=== PATIENT | male | born 1970 | race American Indian/Alaskan Native ===

== ENCOUNTER 2021-01-07 01:13 | Inpatient (IN) | payer OTHER ==
[2021-01-07] MEDS ORDERED: SODIUM CHLORIDE 0.9% 1000 ML 1,000 ML IV ONE ×2 (01:14→03:38)
--- NOTE | 2021-01-07 01:18 | Emergency Department Report ---
HPI - General Time Seen by Provider: 01/07/21 01:14 - HPI HPI: This is a 50-year-old -[place] male presents to the emergency department via EMS for evaluation of altered mental status and possible overdose. Apparently this patient showed up at the house of his ex- and daughter a few hours ago. He has not recently been in their lives. Per EMS the patient has been known to drink alcohol and use some "powder." When he showed up at his ex- 's house apparently he was not feeling well. They laid him down to rest and he slept for about 2 hours but they noticed that he appeared to have some abnormal breathing and then they were unable to arouse him from sleep. EMS has given him 6 mg of Narcan in total. Initially the patient was a GCS of 3 but by the time he arrives to the emergency department he is starting to show a slight improvement as he will occasionally open his eyes or move his extremities. However he seems to go right back to sleep and is nonverbal and not following commands. He had an Accu-Chek in route of about 200. ED Review of Systems ROS: Stated complaint: OD Other details as noted in HPI Comment: Unobtainable due to pts medical conditions Physical Exam - Physical Exam Physical Exam: GENERAL: The patient is ill-appearing and mostly unresponsive. HENT: Normocephalic. Atraumatic. Patient has moist mucous membranes. EYES: Pupils are constricted at about 3 mm, and equal, reactive to light. NECK: Supple. Trachea is midline. CHEST/LUNGS: Clear to auscultation. There is no respiratory distress noted. HEART/CARDIOVASCULAR: Regular. There is no tachycardia. There is no murmur. ABDOMEN: Abdomen is soft, nontender. Patient has normal bowel sounds. There is no abdominal distention. SKIN: Skin is warm and dry. NEURO: Patient is mostly unresponsive. GCS of 10. He will open his eyes to tac tile stimuli. Nonverbal. Seen moving his extremities. Withdraws from pain. MUSCULOSKELETAL: There is no obvious deformity. ED Course - Consultations Consultation #1: 01/07/21 05:12 I spoke to the fine chemicals operator on-call, Dr. Solitario, who agrees with the plan for aspirin and heparin. They will see the patient as a consult. - ABG Interpretation Ph: [phone] PCO2: 50 PO2: 72 Bicarbonate: 20 Interpretation: respiratory acidosis, metabolic acidosis, other (Hypoxemia) ED Medical Decision Making - Lab Data Result diagrams: 01/07/21 01:52 01/07/21 01:52 Lab Results 01/07/21 01/07/21 01/07/21 Range/Units 01:24 01:24 01:52 WBC 24.6 H (4.5-11.0) K/mm3 RBC 4.15 (3.65-5.03) M/mm3 Hgb 13.7 (11.8-15.2) gm/dl Hct 41.5 (35.5-45.6) % MCV 100 H (84-94) fl MCH 33 H (28-32) pg MCHC 33 (32-34) % RDW 12.8 L (13.2-15.2) % Plt Count 222 (140-440) K/mm3 Seg Neutrophils % Continuous Process Tanner Rotary Drum PT (12.2-14.9) Sec. INR (0.87-1.13) APTT (24.2-36.6) Sec. ABG pH (7.320-7.450) POC ABG pCO2 (32.0-48.0) mmHg POC ABG pO2 (83-108) mmHg POC ABG HCO3 ABG O2 Saturation (0-100) POC ABG Base Excess ABG Hemoglobin (12.0-17.5) ABG Oxyhemoglobin (94-98) ABG Methemoglobin (0.0-1.5) ABG Sodium (136.0-145.0) mmol/L ABG Potassium (3.40-4.50) mmol/L ABG Chloride (98-107) mmol/L ABG Glucose (65-95) mg/dL Carboxyhemoglobin (0.5-1.5) FiO2 % Sodium (137-145) mmol/L Potassium (3.6-5.0) mmol/L Chloride (98-107) mmol/L Carbon Dioxide (22-30) mmol/L Anion Gap mmol/L BUN (9-20) mg/dL Creatinine (0.8-1.3) mg/dL Estimated GFR ml/min BUN/Creatinine Ratio % Glucose (75-100) mg/dL Calcium (8.4-10.2) mg/dL Total Bilirubin (0.1-1.2) mg/dL Direct Bilirubin (0-0.2) mg/dL Indirect Bilirubin mg/dL AST (5-40) units/L ALT (7-56) units/L Alkaline Phosphatase (35-129) units/L Ammonia (25-60) umol/L Total Creatine Kinase (55-170) units/L Troponin T (0.00-0.029) ng/mL Total Protein (6.3-8.2) g/dL Albumin (3.9-5) g/dL Albumin/Globulin Ratio % Triglycerides (2-149) mg/dL Cholesterol (50-199) mg/dL LDL Cholesterol Direct (50-130) mg/dL HDL Cholesterol (40-59) mg/dL Cholesterol/HDL Ratio % TSH (0.270-4.200) mlU/mL Arterial Blood Glucose (65-95) mg/dL Arterial Blood Ionized Calcium (4.6-5.3) mg/dL Urine Color Yellow (Yellow) Urine Turbidity Slightly-cloudy (Clear) Urine pH 6.0 (5.0-7.0) Ur Specific [place] 1.009 (1.003-1.030) Urine Protein 100 mg/dl (Negative) mg/dL Urine Glucose (UA) 50 (Negative) mg/dL Urine Ketones Neg (Negative) mg/dL Urine Blood Sm (Negative) Urine Nitrite Neg (Negative) Urine Bilirubin Neg (Negative) Urine Urobilinogen < 2.0 (<2.0) mg/dL Ur Leukocyte Esterase Neg (Negative) Urine WBC (Auto) 6.0 (0.0-6.0) /HPF Urine RBC (Auto) 1.0 (0.0-6.0) /HPF U Epithel Cells (Auto) 1.0 (0-13.0) /HPF Urine Bacteria (Auto) 1+ (Negative) /HPF Hyaline Casts 4 /LPF Urine Mucus Few /HPF Salicylates (2.8-20.0) mg/dL Urine Opiates Screen Negative Urine Methadone Screen Negative Acetaminophen (10.0-30.0) ug/mL Ur Barbiturates Screen Negative Ur Phencyclidine Scrn Negative Ur Amphetamines Screen Negative U Benzodiazepines Scrn Negative Urine Cocaine Screen Positive U Marijuana (THC) Screen Negative Drugs of Abuse Note Disclamer Plasma/Serum Alcohol (0-0.07) % 01/07/21 01/07/21 01/07/21 Range/Units 01:52 01:52 01:52 WBC (4.5-11.0) K/mm3 RBC (3.65-5.03) M/mm3 Hgb (11.8-15.2) gm/dl Hct (35.5-45.6) % MCV (84-94) fl MCH (28-32) pg MCHC (32-34) % RDW (13.2-15.2) % Plt Count (140-440) K/mm3 Seg Neutrophils % PT (12.2-14.9) Sec. INR (0.87-1.13) APTT (24.2-36.6) Sec. ABG pH (7.320-7.450) POC ABG pCO2 (32.0-48.0) mmHg POC ABG pO2 (83-108) mmHg POC ABG HCO3 ABG O2 Saturation (0-100) POC ABG Base Excess ABG Hemoglobin (12.0-17.5) ABG Oxyhemoglobin (94-98) ABG Methemoglobin (0.0-1.5) ABG Sodium (136.0-145.0) mmol/L ABG Potassium (3.40-4.50) mmol/L ABG Chloride (98-107) mmol/L ABG Glucose (65-95) mg/dL Carboxyhemoglobin (0.5-1.5) FiO2 % Sodium 139 (137-145) mmol/L Potassium 4.5 (3.6-5.0) mmol/L Chloride 100.3 (98-107) mmol/L Carbon Dioxide 20 L (22-30) mmol/L Anion Gap 23 mmol/L BUN 12 (9-20) mg/dL Creatinine 1.7 H (0.8-1.3) mg/dL Estimated GFR 43 ml/min BUN/Creatinine Ratio 7 % Glucose 114 H (75-100) mg/dL Calcium 8.5 (8.4-10.2) mg/dL Total Bilirubin < 0.20 < 0.20 (0.1-1.2) mg/dL Direct Bilirubin < 0.2 (0-0.2) mg/dL Indirect Bilirubin 0.0 mg/dL AST 297 H 296 H (5-40) units/L ALT 320 H 319 H (7-56) units/L Alkaline Phosphatase 79 79 (35-129) units/L Ammonia (25-60) umol/L Total Creatine Kinase 416 H (55-170) units/L Troponin T 0.112 H* (0.00-0.029) ng/mL Total Protein 7.1 7.2 (6.3-8.2) g/dL Albumin 4.1 4.1 (3.9-5) g/dL Albumin/Globulin Ratio 1.4 1.3 % Triglycerides 165 H (2-149) mg/dL Cholesterol 170 (50-199) mg/dL LDL Cholesterol Direct 94 (50-130) mg/dL HDL Cholesterol 64 H (40-59) mg/dL Cholesterol/HDL Ratio 2.65 % TSH (0.270-4.200) mlU/mL Arterial Blood Glucose (65-95) mg/dL Arterial Blood Ionized Calcium (4.6-5.3) mg/dL Urine Color (Yellow) Urine Turbidity (Clear) Urine pH (5.0-7.0) Ur Specific [place] (1.003-1.030) Urine Protein (Negative) mg/dL Urine Glucose (UA) (Negative) mg/dL Urine Ketones (Negative) mg/dL Urine Blood (Negative) Urine Nitrite (Negative) Urine Bilirubin (Negative) Urine Urobilinogen (<2.0) mg/dL Ur Leukocyte Esterase (Negative) Urine WBC (Auto) (0.0-6.0) /HPF Urine RBC (Auto) (0.0-6.0) /HPF U Epithel Cells (Auto) (0-13.0) /HPF Urine Bacteria (Auto) (Negative) /HPF Hyaline Casts /LPF Urine Mucus /HPF Salicylates (2.8-20.0) mg/dL Urine Opiates Screen Urine Methadone Screen Acetaminophen (10.0-30.0) ug/mL Ur Barbiturates Screen Ur Phencyclidine Scrn Ur Amphetamines Screen U Benzodiazepines Scrn Urine Cocaine Screen U Marijuana (THC) Screen Drugs of Abuse Note Plasma/Serum Alcohol 0.03 (0-0.07) % 01/07/21 01/07/21 01/07/21 Range/Units 01:52 01:52 01:52 WBC (4.5-11.0) K/mm3 RBC (3.65-5.03) M/mm3 Hgb (11.8-15.2) gm/dl Hct (35.5-45.6) % MCV (84-94) fl MCH (28-32) pg MCHC (32-34) % RDW (13.2-15.2) % Plt Count (140-440) K/mm3 Seg Neutrophils % PT (12.2-14.9) Sec. INR (0.87-1.13) APTT (24.2-36.6) Sec. ABG pH (7.320-7.450) POC ABG pCO2 (32.0-48.0) mmHg POC ABG pO2 (83-108) mmHg POC ABG HCO3 ABG O2 Saturation (0-100) POC ABG Base Excess ABG Hemoglobin (12.0-17.5) ABG Oxyhemoglobin (94-98) ABG Methemoglobin (0.0-1.5) ABG Sodium (136.0-145.0) mmol/L ABG Potassium (3.40-4.50) mmol/L ABG Chloride (98-107) mmol/L ABG Glucose (65-95) mg/dL Carboxyhemoglobin (0.5-1.5) FiO2 % Sodium (137-145) mmol/L Potassium (3.6-5.0) mmol/L Chloride (98-107) mmol/L Carbon Dioxide (22-30) mmol/L Anion Gap mmol/L BUN (9-20) mg/dL Creatinine (0.8-1.3) mg/dL Estimated GFR ml/min BUN/Creatinine Ratio % Glucose (75-100) mg/dL Calcium (8.4-10.2) mg/dL Total Bilirubin (0.1-1.2) mg/dL Direct Bilirubin (0-0.2) mg/dL Indirect Bilirubin mg/dL AST (5-40) units/L ALT (7-56) units/L Alkaline Phosphatase (35-129) units/L Ammonia 47.0 (25-60) umol/L Total Creatine Kinase (55-170) units/L Troponin T (0.00-0.029) ng/mL Total Protein (6.3-8.2) g/dL Albumin (3.9-5) g/dL Albumin/Globulin Ratio % Triglycerides (2-149) mg/dL Cholesterol (50-199) mg/dL LDL Cholesterol Direct (50-130) mg/dL HDL Cholesterol (40-59) mg/dL Cholesterol/HDL Ratio % TSH 1.160 (0.270-4.200) mlU/mL Arterial Blood Glucose (65-95) mg/dL Arterial Blood Ionized Calcium (4.6-5.3) mg/dL Urine Color (Yellow) Urine Turbidity (Clear) Urine pH (5.0-7.0) Ur Specific [place] (1.003-1.030) Urine Protein (Negative) mg/dL Urine Glucose (UA) (Negative) mg/dL Urine Ketones (Negative) mg/dL Urine Blood (Negative) Urine Nitrite (Negative) Urine Bilirubin (Negative) Urine Urobilinogen (<2.0) mg/dL Ur Leukocyte Esterase (Negative) Urine WBC (Auto) (0.0-6.0) /HPF Urine RBC (Auto) (0.0-6.0) /HPF U Epithel Cells (Auto) (0-13.0) /HPF Urine Bacteria (Auto) (Negative) /HPF Hyaline Casts /LPF Urine Mucus /HPF Salicylates < 0.3 L (2.8-20.0) mg/dL Urine Opiates Screen Urine Methadone Screen Acetaminophen (10.0-30.0) ug/mL Ur Barbiturates Screen Ur Phencyclidine Scrn Ur Amphetamines Screen U Benzodiazepines Scrn Urine Cocaine Screen U Marijuana (THC) Screen Drugs of Abuse Note Plasma/Serum Alcohol (0-0.07) % 01/07/21 01/07/21 01/07/21 Range/Units 01:52 03:31 03:52 WBC (4.5-11.0) K/mm3 RBC (3.65-5.03) M/mm3 Hgb (11.8-15.2) gm/dl Hct (35.5-45.6) % MCV (84-94) fl MCH (28-32) pg MCHC (32-34) % RDW (13.2-15.2) % Plt Count (140-440) K/mm3 Seg Neutrophils % PT 13.1 (12.2-14.9) Sec. INR 0.94 (0.87-1.13) APTT 27.1 (24.2-36.6) Sec. ABG pH 7.223 L (7.320-7.450) POC ABG pCO2 50.3 H (32.0-48.0) mmHg POC ABG pO2 72.4 L (83-108) mmHg POC ABG HCO3 20.3 ABG O2 Saturation 92.5 (0-100) POC ABG Base Excess -7.5 ABG Hemoglobin 12.8 (12.0-17.5) ABG Oxyhemoglobin 89.4 L (94-98) ABG Methemoglobin 0.3 (0.0-1.5) ABG Sodium 137.3 (136.0-145.0) mmol/L ABG Potassium 3.8 (3.40-4.50) mmol/L ABG Chloride 107.0 (98-107) mmol/L ABG Glucose 48 L (65-95) mg/dL Carboxyhemoglobin 3.1 H (0.5-1.5) FiO2 % 21.0 Sodium (137-145) mmol/L Potassium (3.6-5.0) mmol/L Chloride (98-107) mmol/L Carbon Dioxide (22-30) mmol/L Anion Gap mmol/L BUN (9-20) mg/dL Creatinine (0.8-1.3) mg/dL Estimated GFR ml/min BUN/Creatinine Ratio % Glucose (75-100) mg/dL Calcium (8.4-10.2) mg/dL Total Bilirubin (0.1-1.2) mg/dL Direct Bilirubin (0-0.2) mg/dL Indirect Bilirubin mg/dL AST (5-40) units/L ALT (7-56) units/L Alkaline Phosphatase (35-129) units/L Ammonia (25-60) umol/L Total Creatine Kinase (55-170) units/L Troponin T (0.00-0.029) ng/mL Total Protein (6.3-8.2) g/dL Albumin (3.9-5) g/dL Albumin/Globulin Ratio % Triglycerides (2-149) mg/dL Cholesterol (50-199) mg/dL LDL Cholesterol Direct (50-130) mg/dL HDL Cholesterol (40-59) mg/dL Cholesterol/HDL Ratio % TSH (0.270-4.200) mlU/mL Arterial Blood Glucose 48 L (65-95) mg/dL Arterial Blood Ionized Calcium 4.5 L (4.6-5.3) mg/dL Urine Color (Yellow) Urine Turbidity (Clear) Urine pH (5.0-7.0) Ur Specific [place] (1.003-1.030) Urine Protein (Negative) mg/dL Urine Glucose (UA) (Negative) mg/dL Urine Ketones (Negative) mg/dL Urine Blood (Negative) Urine Nitrite (Negative) Urine Bilirubin (Negative) Urine Urobilinogen (<2.0) mg/dL Ur Leukocyte Esterase (Negative) Urine WBC (Auto) (0.0-6.0) /HPF Urine RBC (Auto) (0.0-6.0) /HPF U Epithel Cells (Auto) (0-13.0) /HPF Urine Bacteria (Auto) (Negative) /HPF Hyaline Casts /LPF Urine Mucus /HPF Salicylates (2.8-20.0) mg/dL Urine Opiates Screen Urine Methadone Screen Acetaminophen 5.0 L (10.0-30.0) ug/mL Ur Barbiturates Screen Ur Phencyclidine Scrn Ur Amphetamines Screen U Benzodiazepines Scrn Urine Cocaine Screen U Marijuana (THC) Screen Drugs of Abuse Note Plasma/Serum Alcohol (0-0.07) % - EKG Data -: EKG Interpreted by Me EKG shows normal: sinus rhythm, axis, intervals (Slightly prolonged QTC), QRS complexes (LVH), ST-T waves Rate: normal - EKG Data When compared to previous EKG there are: previous EKG unavailable Interpretation: other (Sinus rhythm at 69 bpm, normal axis, slightly prolonged QTC, LVH. No ST elevation CA.) - Radiology Data Radiology results: report reviewed, image reviewed interpreted by me: Chest x-ray does not show any acute process. There are no pleural effusions, obvious pneumonia and there is no pneumothorax. CT HEAD WITHOUT CONTRAST INDICATION / CLINICAL INFORMATION: Altered mental status. TECHNIQUE: All CT scans at this location are performed using CT dose reduction for ALARA by means of automated exposure control. COMPARISON: None available. FINDINGS: No acute intracranial hemorrhage. Hyperdensity along the vertex. Represent normal variant superior sagittal sinus. No asymmetry to suggest definite subdural. Ventricles are normal in size. No mass effect or midline shift. ADDITIONAL FINDINGS: None. IMPRESSION: 1. No acute findings are d efinitely seen. - Medical Decision Making This patient presented to the emergency department with concern for being an overdose. He did not have any response to Narcan given. UDS later shows being positive for cocaine. Blood alcohol level of 0.03. The patient initially needed 3 L oxygen via nasal cannula due to some hypoxia. ABG later shows both respiratory and metabolic acidosis and some hypoxemia. Chest x-ray does not show any pneumonia, pleural effusions, pneumothorax, widened mediastinum, or any other acute process. EKG shows LVH, but no morphology consistent with ST elevation myocardial infarction. CT scan of the head without contrast does not show any bleed, large vessel occlusion, hydrocephalus, edema, or any other acute processes. The patient's labs shows multiple abnormalities including a leukocytosis of 24,000, acute kidney injury with a GFR of about 40, a first elevated troponin of 0.112, and transaminitis with both levels being about 300. The patient has been given multiple liters of IV fluid resuscitation. He will be given a rectal aspirin and has been placed on heparin secondary to the NSTEMI. Cardiology has been contacted and consulted. Patient has been accepted for admission by the hospitalist, Dr. Franco. Critical Care Time: Yes Critical care time in (mins) excluding proc time.: 45 Critical care attestation.: If time is entered above; I have spent that time in minutes in the direct care of this critically ill patient, excluding procedure time. Critical care time was spent on this patient in doing his initial evaluation, multiple reevaluations, ordering and interpretation of labs and imaging, heparin for the NSTEMI, IV fluid resuscitation, discussion with the fine chemicals operator. Critical Care Time: 45 minutes ED Disposition Clinical Impression: NSTEMI (non-ST elevated myocardial infarction), RM (acute kidney injury), Cocaine abuse, Encephalopathy acute, Hypoxemia, Hypercapnia Leukocytosis Qualifiers: Leukocytosis type: unspecified Qualified Code(s): D72.829 - Elevated white bloo d cell count, unspecified Disposition: OP ADMIT IP TO THIS HOSP Is pt being admited?: Yes Condition: Serious Time of Disposition: 04:45
--- NOTE | 2021-01-07 01:46 | XRay Report ---
CHEST 1 VIEW 01/07/2021 1:22 AM INDICATION / CLINICAL INFORMATION: Altered mental status. COMPARISON: None available. FINDINGS: SUPPORT DEVICES: None. HEART / MEDIASTINUM: No significant abnormality. LUNGS / PLEURA: No significant pulmonary or pleural abnormality. No pneumothorax. ADDITIONAL FINDINGS: No significant additional findings. IMPRESSION: 1. No acute findings. Signer Name: Todd Camacho MD Signed: 01/07/2021 1:42 AM Workstation Name: [id number]
[2021-01-07 02:25] LABS: Bacteria,Urine 1+ /HPF (Negative); Bilirubin,Urine NEG (Negative); Blood,Urine SM (Negative); Color,Urine Yellow (Yellow); Hyaline Casts,Urine 4 /LPF; Mucus,Urine FEW /HPF; Urobilinogen,Urine < 2.0 mg/dL (<2.0)
[2021-01-07 02:25] LABS: Hematocrit 41.5 % (35.5-45.6); Hemoglobin 13.7 gm/dl (11.8-15.2); Mean Corpuscular HGB Conc 33 % (32-34); Mean Corpuscular Volume 100 fl (84-94); Platelet Count 222 K/mm3 (140-440); Red Blood Count 4.15 M/mm3 (3.65-5.03); Red Cell Distribution Width 12.8 % (13.2-15.2)
[2021-01-07 02:29] LABS: Amphetamine Screen,Urine Negative; Benzodiazepines Screen,Urine Negative; Cannabinoid Screen,Urine Negative; Methadone Screen,Urine Negative; Opiate Screen,Urine Negative
[2021-01-07 02:43] LABS: Alanine Aminotransferase 320 units/L (7-56); Albumin 4.1 g/dL (3.9-5); BUN/Creatinine Ratio 7; Blood Urea Nitrogen 12 mg/dL (9-20); Calcium 8.5 mg/dL (8.4-10.2); Hemolysis Index 9
[2021-01-07 02:45] LABS: Alanine Aminotransferase 319 units/L (7-56); Albumin 4.1 g/dL (3.9-5)
[2021-01-07 02:51] LABS: Bilirubin,Direct < 0.2 mg/dL (0-0.2)
[2021-01-07] MEDS: SODIUM CHLORIDE 0.9% 1000 ML 1,000 ML IV ONE ×2 (03:17→19:25)
--- NOTE | 2021-01-07 03:25 | Cat Scan Report ---
CT HEAD WITHOUT CONTRAST INDICATION / CLINICAL INFORMATION: Altered mental status. TECHNIQUE: All CT scans at this location are performed using CT dose reduction for ALARA by means of automated e xposure control. COMPARISON: None available. FINDINGS: No acute intracranial hemorrhage. Hyperdensity along the vertex. Represent normal variant superior sa gittal sinus. No asymmetry to suggest definite subdural. Ventricles are normal in size. No mass effec t or midline shift. ADDITIONAL FINDINGS: None. IMPRESSION: 1. No acute findings are definitely seen. Signer Name: Todd Camacho MD Signed: 01/07/2021 3:20 AM Workstation Name: [id number]
[2021-01-07 03:42] LABS: Cocaine Screen,Urine Positive
[2021-01-07 03:44] LABS: Chol/HDL Ratio 2.65 %; HDL Cholesterol 64 mg/dL (40-59); LDL Cholesterol,Direct 94 mg/dL (50-130)
[2021-01-07] MEDS ORDERED: cefTRIAXone/NS 1 GM/50 ML 1 GM/50 ML BAG IV ONE (04:07)
[2021-01-07 04:32] LABS: INR 0.94 (0.87-1.13)
[2021-01-07 04:33] LABS: Partial Thromboplastin Time 27.1 Sec. (24.2-36.6)
[2021-01-07] MEDS ORDERED: ASPIRIN 300 MG RECT SUPP PR ONE (04:42)
[2021-01-07] MEDS ORDERED: HEPARIN 10,000 UNITS/10 ML VIAL IV ONE (04:43)
[2021-01-07] MEDS ORDERED: NITROGLYCERIN 0.4 MG TAB SUBL SL PRN (04:59)
[2021-01-07] MEDS ORDERED: traMADol 50 MG TAB PO PRN (04:59)
[2021-01-07] MEDS ORDERED: ACETAMINOPHEN 325 MG TAB PO PRN ×2 (04:59)
[2021-01-07] MEDS ORDERED: ONDANSETRON 4 MG/2 ML INJ IV PRN (04:59)
[2021-01-07] MEDS ORDERED: ALBUTEROL 2.5 MG/3 ML NEBU IH PRN (04:59)
[2021-01-07] MEDS ORDERED: hydrALAZINE 20 MG/1 ML INJ IV PRN (05:04)
[2021-01-07] MEDS ORDERED: MORPHINE 2 MG/1 ML INJ IV PRN (05:04)
--- NOTE | 2021-01-07 05:11 | History and Physical Report ---
History of Present Illness Date of examination: 01/07/21 Date of admission: 01/07/21 Chief complaint: Altered mental status History of present illness: 50-year-old -[place] male past medical history of cocaine abuse was brought to the emergency room because of altered mental status and possible overdose. Apparently this patient showed up at the house of his ex- and daughter a few hours ago. He has not recently been in their lives. Per EMS the patient has been known to drink alcohol and use some "powder." When he showed up at his ex-'s house apparently he was not feeling well. They laid him down to rest and he slept for about 2 hours but they noticed that he appeared to have some abnormal breathing and then they were unable to arouse him from sleep. EMS has given him 6 mg of Narcan in total. Initially the patient was a GCS of 3 but by the time he arrives to the emergency department he is starting to show a slight improvement as he will occasionally open his eyes or move his extremities. However he seems to go right back to sleep and is nonverbal and not following commands. He had an Accu-Chek in route of about 200. In the emergency room patient WBC is 24.6 patient troponin is 0.112 BUN 12 creatinine 1.7 AST [address] scan of the head shows no acute intracranial abnormality Past History Past Medical History: other (Cocaine abuse) Medications and Allergies Allergies Allergy/AdvReac Type Severity Reaction Status Date / Time No Known Allergies Allergy Verified 01/07/21 01:33 Active Meds: Active Medications Acetaminophen (Acetaminophen 325 Mg Tab) 650 mg PO Q4H PRN PRN Reason: Pain MILD(1-3)/Fever >100.5/BATRES Acetaminophen (Acetaminophen 325 Mg Tab) 650 mg PO Q6H PRN PRN Reason: Pain, Mild (1-3) Albuterol (Albuterol 2.5 Mg/3 Ml Nebu) 2.5 mg IH Q3HRT PRN PRN Reason: Shortness Of Breath Albuterol/Ipratropium (Ipratropium/Albuterol Sulfate 3 Ml Ampul.Neb) 1 ampul IH Q6HRT NEVA Aspirin (Aspirin 81 Mg Tab Chew) 81 mg PO QDAY NEVA Atorvastatin Calcium (Atorvastatin 40 Mg Tab) 40 mg PO QHS NEVA Famotidine (Famotidine 20 Mg/2 Ml Inj) 20 mg IV BID NEVA Heparin Sodium (Porcine) (Heparin 5,000 Unit/1 Ml Vial) 5,000 unit SUB-Q Q8HR NEVA Hydralazine HCl (Hydralazine 20 Mg/1 Ml Inj) 10 mg IV Q6H PRN PRN Reason: htn Heparin Sodium/Sodium Chloride (Heparin/ 0.45% Nacl-25,000 Unit/500 Ml) 25,000 unit in 500 mls @ 20 mls/hr IV TITRATE NEVA; Protocol Dextrose/Sodium Chloride (D5/0.45ns) 1,000 mls @ 100 mls/hr IV DIRECT NEVA Ceftriaxone Sodium (Rocephin/Ns 2 Gm/100 Ml) 2 gm in 100 mls @ 200 mls/hr IV Q24H NEVA; Protocol Morphine Sulfate (Morphine 2 Mg/1 Ml Inj) 2 mg IV Q4H PRN PRN Reason: Pain , Severe (7-10) Nitroglycerin (Nitroglycerin 0.4 Mg Tab Subl) 0.4 mg SL Q5M PRN PRN Reason: Chest Pain Ondansetron HCl (Ondansetron 4 Mg/2 Ml Inj) 4 mg IV Q8H PRN PRN Reason: Nausea And Vomiting Sodium Chloride (Sodium Chloride 0.9% 10 Ml Flush Syringe) 10 ml IV BID NEVA Sodium Chloride (Sodium Chloride 0.9% 10 Ml Flush Syringe) 10 ml IV PRN PRN PRN Reason: LINE FLUSH Sodium Chloride (Sodium Chloride 0.9% 10 Ml Flush Syringe) 10 ml IV PRN PRN PRN Reason: LINE FLUSH Tramadol HCl (Tramadol 50 Mg Tab) 50 mg PO Q6H PRN PRN Reason: Pain, Moderate (4-6) Review of Systems Neurological: change in mentation, confusion Exam - Constitutional Vitals: Temp Pulse Resp BP Pulse Ox 97.6 F 68 12 93/68 99 01/07/21 01:25 01/07/21 04:29 01/07/21 04:29 01/07/21 04:29 01/07/21 04:29 General appearance: Present: no acute distress, well-nourished - EENT Eyes: Present: PERRL ENT: hearing intact, clear oral mucosa - Neck Neck: Present: supple, normal ROM - Respiratory Respiratory effort: normal Respiratory: bilateral: CTA - Cardiovascular Heart Sounds: Present: S1 & S2. Absent: rub, click - Extremities Extremities: pulses symmetrical, No edema Peripheral Pulses: within normal limits - Abdominal General gastrointestinal: Present: soft, non-tender, non-distended, normal bowel sounds Male genitourinary: Present: normal - Integumentary Integumentary: Present: clear, warm, dry - Musculoskeletal Musculoskeletal: gait normal, strength equal bilaterally - Psychiatric Psychiatric: other (Sleepiness) - Neurologic Neurologic: CNII-XII intact, moves all extremities HEART Score - HEART Score Troponin: Troponin T 0.112 ng/mL (0.00-0.029) H* 01/07/21 01:52 Results - Labs CBC & Chem 7: 01/07/21 01:52 01/07/21 01:52 Labs: Laboratory Last Values WBC 24.6 K/mm3 (4.5-11.0) H 01/07/21 01:52 RBC 4.15 M/mm3 (3.65-5.03) 01/07/21 01:52 Hgb 13.7 gm/dl (11.8-15.2) 01/07/21 01:52 Hct 41.5 % (35.5-45.6) 01/07/21 01:52 MCV 100 fl (84-94) H 01/07/21 01:52 MCH 33 pg (28-32) H 01/07/21 01:52 MCHC 33 % (32-34) 01/07/21 01:52 RDW 12.8 % (13.2-15.2) L 01/07/21 01:52 Plt Count 222 K/mm3 (140-440) 01/07/21 01:52 Seg Neutrophils % Mixer Pigment 01/07/21 01:52 PT 13.1 Sec. (12.2-14.9) 01/07/21 03:52 INR 0.94 (0.87-1.13) 01/07/21 03:52 APTT 27.1 Sec. (24.2-36.6) 01/07/21 03:52 ABG pH 7.223 (7.320-7.450) L 01/07/21 03:31 POC ABG pCO2 50.3 mmHg (32.0-48.0) H 01/07/21 03:31 POC ABG pO2 72.4 mmHg (83-108) L 01/07/21 03:31 POC ABG HCO3 20.3 01/07/21 03:31 ABG O2 Saturation 92.5 (0-100) 01/07/21 03:31 POC ABG Base Excess -7.5 01/07/21 03:31 ABG Hemoglobin 12.8 (12.0-17.5) 01/07/21 03:31 ABG Oxyhemoglobin 89.4 (94-98) L 01/07/21 03:31 ABG Methemoglobin 0.3 (0.0-1.5) 01/07/21 03:31 ABG Sodium 137.3 mmol/L (136.0-145.0) 01/07/21 03:31 ABG Potassium 3.8 mmol/L (3.40-4.50) 01/07/21 03:31 ABG Chloride 107.0 mmol/L (98-107) 01/07/21 03:31 ABG Glucose 48 mg/dL (65-95) L 01/07/21 03:31 Carboxyhemoglobin 3.1 (0.5-1.5) H 01/07/21 03:31 FiO2 % 21.0 01/07/21 03:31 Sodium 139 mmol/L (137-145) 01/07/21 01:52 Potassium 4.5 mmol/L (3.6-5.0) 01/07/21 01:52 Chloride 100.3 mmol/L (98-107) 01/07/21 01:52 Carbon Dioxide 20 mmol/L (22-30) L 01/07/21 01:52 Anion Gap 23 mmol/L 01/07/21 01:52 BUN 12 mg/dL (9-20) 01/07/21 01:52 Creatinine 1.7 mg/dL (0.8-1.3) H 01/07/21 01:52 Estimated GFR 43 ml/min 01/07/21 01:52 BUN/Creatinine Ratio 7 % 01/07/21 01:52 Glucose 114 mg/dL (75-100) H 01/07/21 01:52 Calcium 8.5 mg/dL (8.4-10.2) 01/07/21 01:52 Total Bilirubin < 0.20 mg/dL (0.1-1.2) 01/07/21 01:52 Total Bilirubin < 0.20 mg/dL (0.1-1.2) 01/07/21 01:52 Direct Bilirubin < 0.2 mg/dL (0-0.2) 01/07/21 01:52 Indirect Bilirubin 0.0 mg/dL 01/07/21 01:52 AST 296 units/L (5-40) H 01/07/21 01:52 AST 297 units/L (5-40) H 01/07/21 01:52 ALT 319 units/L (7-56) H 01/07/21 01:52 ALT 320 units/L (7-56) H 01/07/21 01:52 Alkaline Phosphatase 79 units/L (35-129) 01/07/21 01:52 Alkaline Phosphatase 79 units/L (35-129) 01/07/21 01:52 Ammonia 47.0 umol/L (25-60) 01/07/21 01:52 Total Creatine Kinase 416 units/L (55-170) H 01/07/21 01:52 Troponin T 0.112 ng/mL (0.00-0.029) H* 01/07/21 01:52 Total Protein 7.1 g/dL (6.3-8.2) 01/07/21 01:52 Total Protein 7.2 g/dL (6.3-8.2) 01/07/21 01:52 Albumin 4.1 g/dL (3.9-5) 01/07/21 01:52 Albumin 4.1 g/dL (3.9-5) 01/07/21 01:52 Albumin/Globulin Ratio 1.3 % 01/07/21 01:52 Albumin/Globulin Ratio 1.4 % 01/07/21 01:52 Triglycerides 165 mg/dL (2-149) H 01/07/21 01:52 Cholesterol 170 mg/dL (50-199) 01/07/21 01:52 LDL Cholesterol Direct 94 mg/dL (50-130) 01/07/21 01:52 HDL Cholesterol 64 mg/dL (40-59) H 01/07/21 01:52 Cholesterol/HDL Ratio 2.65 % 01/07/21 01:52 TSH 1.160 mlU/mL (0.270-4.200) 01/07/21 01:52 Arterial Blood Glucose 48 mg/dL (65-95) L 01/07/21 03:31 Arterial Blood Ionized Calcium 4.5 mg/dL (4.6-5.3) L 01/07/21 03:31 Urine Color Yellow (Yellow) 01/07/21 01:24 Urine Turbidity Slightly-cloudy (Clear) 01/07/21 01:24 Urine pH 6.0 (5.0-7.0) 01/07/21 01:24 Ur Specific [place] 1.009 (1.003-1.030) 01/07/21 01:24 Urine Protein 100 mg/dl mg/dL (Negative) 01/07/21 01:24 Urine Glucose (UA) 50 mg/dL (Negative) 01/07/21 01:24 Urine Ketones Neg mg/dL (Negative) 01/07/21 01:24 Urine Blood Sm (Negative) 01/07/21 01:24 Urine Nitrite Neg (Negative) 01/07/21 01:24 Urine Bilirubin Neg (Negative) 01/07/21 01:24 Urine Urobilinogen < 2.0 mg/dL (<2.0) 01/07/21 01:24 Ur Leukocyte Esterase Neg (Negative) 01/07/21 01:24 Urine WBC (Auto) 6.0 /HPF (0.0-6.0) 01/07/21 01:24 Urine RBC (Auto) 1.0 /HPF (0.0-6.0) 01/07/21 01:24 U Epithel Cells (Auto) 1.0 /HPF (0-13.0) 01/07/21 01:24 Urine Bacteria (Auto) 1+ /HPF (Negative) 01/07/21 01:24 Hyaline Casts 4 /LPF 01/07/21 01:24 Urine Mucus Few /HPF 01/07/21 01:24 Salicylates < 0.3 mg/dL (2.8-20.0) L 01/07/21 01:52 Urine Opiates Screen Negative 01/07/21 01:24 Urine Methadone Screen Negative 01/07/21 01:24 Acetaminophen 5.0 ug/mL (10.0-30.0) L 01/07/21 01:52 Ur Barbiturates Screen Negative 01/07/21 01:24 Ur Phencyclidine Scrn Negative 01/07/21 01:24 Ur Amphetamines Screen Negative 01/07/21 01:24 U Benzodiazepines Scrn Negative 01/07/21 01:24 Urine Cocaine Screen Positive 01/07/21 01:24 U Marijuana (THC) Screen Negative 01/07/21 01:24 Drugs of Abuse Note Disclamer 01/07/21 01:24 Plasma/Serum Alcohol 0.03 % (0-0.07) 01/07/21 01:52 - Imaging and Cardiology Chest x-ray: report reviewed CT Scan - head: report reviewed Assessment and Plan VTE prophylaxis?: Chemical Plan of care discussed with patient/family: Yes - Patient Problems (1) NSTEMI (non-ST elevated myocardial infarction) Current Visit: Yes Status: Acute Plan to address problem: Admit the patient to the medical telemetry. Put the patient on aspirin 81 mg p. o. daily. Nitroglycerin as needed. Lipitor 40 mg p.o. daily. Heparin 5000 units subcu every 8 hours. We do the serial cardiac enzyme. We also do echocardiogram and consult cardiology for evaluation (2) RM (acute kidney injury) Current Visit: Yes Status: Acute Plan to address problem: Avoid nephrotoxic drug. D5 half-normal saline at the rate of 100 cc/h. Renally dose medication. Recheck BMP in the morning (3) Encephalopathy acute Current Visit: Yes Status: Acute Plan to address problem: Multifactorial most likely secondary to acute NH cocaine abuse and RM. We will put the patient oxygen 3 L/min IV fluid D5 half-normal saline at the rate of 100 cc/h. We will monitor the patient closely (4) Cocaine abuse Current Visit: Yes Status: Acute Plan to address problem: We counseled the patient regarding quit taking cocaine. (5) Hypoxemia Current Visit: Yes Status: Acute Plan to address problem: Oxygen via nasal cannula 3 L/min. DuoNeb by nebulizer every 4 hours. Albuterol via nebulizer every 4 hours as needed. We will continue the home medication. We will monitor the patient closely (6) Leukocytosis Current Visit: Yes Status: Acute Plan to address problem: Rocephin 2 g IV daily we will do the blood cultures sputum culture recheck CBC in the morning (7) DVT prophylaxis Current Visit: Yes Status: Acute Plan to address problem: Heparin 5000 units subcu every 8 hours for DVT prophylaxis. Pepcid 20 mg IV every 12 hours for GI prophylaxis. Patient is a full code
[2021-01-07 05:56] LABS: Eosinophils % (Manual) 0.5 % (0.0-4.3); Monocytes % (Manual) 3.5 % (0.0-7.3); Total Cells Counted 200
[2021-01-07 05:59] LABS: Anisocytosis 1+; Platelet Estimate Consistent w Auto
[2021-01-07] MEDS ORDERED: HEPARIN 5,000 UNIT/1 ML VIAL SUB-Q SCH (06:00)
[2021-01-07] MEDS: HEPARIN/ 0.45% NACL DRIP 25,000 UNIT/500 ML BAG IV SCH (06:06)
[2021-01-07] MEDS ORDERED: ASPIRIN 325 MG TAB PO ONE (06:15)
[2021-01-07 07:50] LABS: Hematocrit 38.9 % (35.5-45.6); Hemoglobin 12.9 gm/dl (11.8-15.2); Mean Corpuscular HGB Conc 33 % (32-34); Mean Corpuscular Volume 100 fl (84-94); Platelet Count 193 K/mm3 (140-440); Red Blood Count 3.91 M/mm3 (3.65-5.03); Red Cell Distribution Width 12.9 % (13.2-15.2)
[2021-01-07 07:54] LABS: BUN/Creatinine Ratio 11; Blood Urea Nitrogen 13 mg/dL (9-20); Calcium 8.2 mg/dL (8.4-10.2); Hemolysis Index 10
[2021-01-07] MEDS ORDERED: IPRATROPIUM/ALBUTEROL SULFATE 3 ML AMPUL.NEB IH SCH (08:00)
[2021-01-07 09:21] LABS: Creatine Kinase MB 24.7 ng/mL (0.0-4.0)
[2021-01-07 10:36] LABS: Band Neutrophils # (Manual) 0.2 K/mm3; Platelet Estimate Consistent w Auto; RBC Morphology Normal; Total Cells Counted 100
[2021-01-07] MEDS: FAMOTIDINE 20 MG/2 ML INJ IV SCH ×2 (11:04→22:11)
--- NOTE | 2021-01-07 11:17 | Consultation ---
History of Present Illness Consult date: 01/07/21 Consult reason: elevated troponin History of present illness: The patient is a 50-year-old man brought to the hospital after he was found unresponsive by family members. The hall coordinator reportedly gave him Narcan which caused him to begin to wake up. He was evaluated in the emergency room and admitted to the stepdown ICU. The patient is currently awake, denies any chest pain or shortness of breath or cardiac history. He states that he has been abusing cocaine for about 20 years. On the day of the presentation he states that he was drinking alcohol heavily, and also using cocaine, after which he states that he felt tired and went to sleep. His next recollection was when he woke up in the hospital. Laboratory exam on presentation showed a leukocytosis of 24,000, positive cocaine screen, and alcohol level of 0.03. In this milieu, the troponin level was 0.2, largely unchanged on 2 serial measurements. EKG was a sinus bra dycardia at 54, with early repolarization changes, otherwise essentially normal ECG. Chest x-ray revealed a borderline cardiomegaly, otherwise normal chest x- ray. Cardiology consultation was requested for further evaluation of the troponin elevation. Past History Past Medical History: other (Cocaine abuse, alcohol abuse) Medications and Allergies Allergies Allergy/AdvReac Type Severity Reaction Status Date / Time No Known Allergies Allergy Verified 01/07/21 01:33 Active Meds: Active Medications Acetaminophen (Acetaminophen 325 Mg Tab) 650 mg PO Q6H PRN PRN Reason: Pain, Mild (1-3) Albuterol (Albuterol 2.5 Mg/3 Ml Nebu) 2.5 mg IH Q3HRT PRN PRN Reason: Shortness Of Breath Aspirin (Aspirin 81 Mg Tab Chew) 81 mg PO QDAY NEVA Atorvastatin Calcium (Atorvastatin 40 Mg Tab) 40 mg PO QHS NEVA Famotidine (Famotidine 20 Mg/2 Ml Inj) 20 mg IV BID NEVA Last Admin: 01/07/21 11:04 Dose: 20 mg Documented by: Hydralazine HCl (Hydralazine 20 Mg/1 Ml Inj) 10 mg IV Q6H PRN PRN Reason: SBP >/=160; DBP >/=100 Heparin Sodium/Sodium Chloride (Heparin/ 0.45% Nacl-25,000 Unit/500 Ml) 25,000 unit in 500 mls @ 20 mls/hr IV TITRATE NEVA; Protocol Last Admin: 01/07/21 06:06 Dose: 1,000 units/hr, 20 mls/hr Documented by: Dextrose/Sodium Chloride (D5/0.45ns) 1,000 mls @ 100 mls/hr IV DIRECT NEVA Ceftriaxone Sodium (Rocephin/Ns 2 Gm/100 Ml) 2 gm in 100 mls @ 200 mls/hr IV Q24H NEVA; Protocol Morphine Sulfate (Morphine 2 Mg/1 Ml Inj) 2 mg IV Q4H PRN PRN Reason: Pain , Severe (7-10) Nitroglycerin (Nitroglycerin 0.4 Mg Tab Subl) 0.4 mg SL Q5M PRN PRN Reason: Chest Pain Ondansetron HCl (Ondansetron 4 Mg/2 Ml Inj) 4 mg IV Q8H PRN PRN Reason: Nausea And Vomiting Last Admin: 01/07/21 06:21 Dose: 4 mg Documented by: Sodium Chloride (Sodium Chloride 0.9% 10 Ml Flush Syringe) 10 ml IV BID NEVA Last Admin: 01/07/21 11:04 Dose: 10 ml Documented by: Sodium Chloride (Sodium Chloride 0.9% 10 Ml Flush Syringe) 10 ml IV PRN PRN PRN Reason: LINE FLUSH Tramadol HCl (Tramadol 50 Mg Tab) 50 mg PO Q6H PRN PRN Reason: Pain, Moderate (4-6) Review of Systems Cardiovascular: no chest pain, no orthopnea, no palpitations, no rapid/irregular heart beat, no edema, no syncope, no lightheadedness, no shortness of breath Physical Examination Vital Signs Resp Pulse Ox 16 98 01/07/21 01:21 01/07/21 01:21 General appearance: no acute distress HEENT: Positive: PERRL Neck: Positive: neck supple Cardiac: Positive: Reg Rate and Rhythm Lungs: Positive: Decreased Breath Sounds Neuro: Positive: Grossly Intact Abdomen: Positive: Soft Male genitourinary: Positive: deferred Extremities: Absent: edema Results 01/07/21 07:10 01/07/21 07:10 Cardiac Enzymes 01/07/21 01/07/21 01/07/21 Range/Units 01:52 01:52 08:33 AST 297 H 296 H (5-40) units/L CK-MB (CK-2) 24.7 H (0.0-4.0) ng/mL Coagulation 01/07/21 Range/Units 03:52 PT 13.1 (12.2-14.9) Sec. INR 0.94 (0.87-1.13) APTT 27.1 (24.2-36.6) Sec. Lipids 01/07/21 Range/Units 01:52 Triglycerides 165 H (2-149) mg/dL Cholesterol 170 (50-199) mg/dL HDL Cholesterol 64 H (40-59) mg/dL Cholesterol/HDL Ratio 2.65 % CBC 01/07/21 01/07/21 Range/Units 01:52 07:10 WBC 24.6 H 21.2 H (4.5-11.0) K/mm3 RBC 4.15 3.91 (3.65-5.03) M/mm3 Hgb 13.7 12.9 (11.8-15.2) gm/dl Hct 41.5 38.9 (35.5-45.6) % Plt Count 222 193 (140-440) K/mm3 Comprehensive Metabolic Panel 01/07/21 01/07/21 01/07/21 Range/Units 01:52 01:52 07:10 Sodium 139 135 L (137-145) mmol/L Potassium 4.5 4.9 (3.6-5.0) mmol/L Chloride 100.3 103.2 (98-107) mmol/L Carbon Dioxide 20 L 17 L (22-30) mmol/L BUN 12 13 (9-20) mg/dL Creatinine 1.7 H 1.2 (0.8-1.3) mg/dL Glucose 114 H 72 L (75-100) mg/dL Calcium 8.5 8.2 L (8.4-10.2) mg/dL Direct Bilirubin < 0.2 (0-0.2) mg/dL Indirect Bilirubin 0.0 mg/dL AST 297 H 296 H (5-40) units/L ALT 320 H 319 H (7-56) units/L Alkaline Phosphatase 79 79 (35-129) units/L Total Protein 7.1 7.2 (6.3-8.2) g/dL Albumin 4.1 4.1 (3.9-5) g/dL EKG interpretations - Telemetry EKG Rhythm: Sinus Bradycardia Assessment and Plan - Patient Problems (1) Elevated troponin Current Visit: Yes Status: Acute Plan to address problem: Nonspecific troponin elevation in the setting of alcohol and cocaine abuse. Serial ECGs are benign, echocardiogram is pending for left ventricular function assessment. Further cardiac ischemic work-up will depend on clinical course.
[2021-01-07 13:42] LABS: Amphetamine Screen,Urine Negative; Benzodiazepines Screen,Urine Negative; Cannabinoid Screen,Urine Negative; Methadone Screen,Urine Negative; Opiate Screen,Urine Negative
--- NOTE | 2021-01-07 14:04 | Event Note ---
Date: 01/07/21 Patient was admitted early this morning with chest pain nonspecific elevation of troponins Cardiology evaluation recommendations noted and appreciated, agree with the current management. We will closely monitor the patient and adjust management as needed
[2021-01-07 14:13] LABS: Cocaine Screen,Urine PRESUMPTIVE POSITIVE
[2021-01-07] MEDS: D5W/0.45% NACL 1,000 ML IV SCH (19:34)
[2021-01-08] MEDS: cefTRIAXone/NS 2 GM/100 ML 2 GM/100 ML BAG IV SCH (03:27)
[2021-01-08] MEDS: D5W/0.45% NACL 1,000 ML IV SCH (03:29)
[2021-01-08] MEDS: HEPARIN/ 0.45% NACL DRIP 25,000 UNIT/500 ML BAG IV SCH (03:32)
[2021-01-08 05:03] LABS: BUN/Creatinine Ratio 11; Blood Urea Nitrogen 9 mg/dL (9-20); Calcium 8.5 mg/dL (8.4-10.2); Hemolysis Index 4
[2021-01-08 05:17] LABS: Basophils % (Auto) 0.3 % (0.0-1.8); Eosinophils # (Auto) 0.1 K/mm3 (0.0-0.4); Eosinophils % (Auto) 0.8 % (0.0-4.3); Hematocrit 35.4 % (35.5-45.6); Hemoglobin 11.9 gm/dl (11.8-15.2); Lymphocytes # (Auto) 2.1 K/mm3 (1.2-5.4); Lymphocytes % (Auto) 18.8 % (13.4-35.0); Mean Corpuscular HGB Conc 34 % (32-34); Mean Corpuscular Volume 98 fl (84-94); Monocytes # (Auto) 0.5 K/mm3 (0.0-0.8); Monocytes % (Auto) 4.4 % (0.0-7.3); Platelet Count 203 K/mm3 (140-440); Red Blood Count 3.64 M/mm3 (3.65-5.03); Red Cell Distribution Width 12.8 % (13.2-15.2)
--- NOTE | 2021-01-08 08:37 | Progress Note ---
Assessment and Plan Assessment and plan: -- NSTEMI (non-ST elevated myocardial infarction) Current Visit: Yes Status: Acute Continue current cardiac medications Echo; EF 55 to 60% Management per cardiology -- RM (acute kidney injury) Current Visit: Yes Status: Acute/resolved. Vasomotor nephropathy, renal function back to normal level Monitor renal function, avoid nephrotoxins --Acute metabolic encephalopathy acute Current Visit: Yes Status: Acute Multifactorial most likely secondary to acute PA cocaine abuse and RM. Treat the underlying cause and supportive care --Cocaine abuse Current Visit: Yes Status: Acute Strongly advised to quit recreational drug use Cardiac symptoms probably cocaine related --Ongoing tobacco use; Current Visit: Yes Status: Acute Strongly advised smoking cessation Risks and complications of prolonged smoking advised the patient -Hypoxemia/respiratory distress; POA Current Visit: Yes Status: Acute Requiring supplemental oxygen oxygen via nasal cannula 3-4 L/min. Wean as tolerated , home O2 evaluation at discharge Supportive care --Leukocytosis Current Visit: Yes Status: Acute Empiric antibiotic Rocephin 2 g IV daily Follow blood cultures -- DVT prophylaxis Current Visit: Yes Status: Acute Plan to address problem: Heparin 5000 units subcu every 8 hours for DVT prophylaxis. --GI prophylaxis ;Pepcid 20 mg IV every 12 hours --Full CODE STATUS We will closely monitor patient and adjust the management as needed Follow cardiology evaluation recommendations We will transfer the patient to telemetry Plan of care reviewed with the patient and his nurse 01/08/2021; Patient admitted with non-ST elevation PA, cocaine abuse Multiple risk factors, cardiology evaluated the patient Possible heart cath tomorrow We will transfer the patient to telemetry History Interval history: I have seen and examined the patient at the bedside in [facility] Patient's chart and medications reviewed Patient feels slightly better wants to go home Denies chest pain or shortness of breath Vital signs reviewed Hospitalist Physical - Constitutional Vitals: Temp Pulse Resp BP Pulse Ox 99.2 F 57 L 20 134/74 94 01/08/21 04:27 01/08/21 08:21 01/08/21 08:00 01/08/21 08:00 01/08/21 08:21 General appearance: Present: no acute distress, well-nourished - EENT Eyes: Present: PERRL, EOM intact - Neck Neck: Present: supple, normal ROM - Respiratory Respiratory effort: normal Respiratory: bilateral: diminished, negative: rales, rhonchi, wheezing - Cardiovascular Rhythm: regular Heart Sounds: Present: S1 & S2 - Extremities Extremities: no ischemia, No edema - Abdominal General gastrointestinal: soft, non-tender, non-distended, normal bowel sounds - Integumentary Integumentary: Present: clear, warm - Psychiatric Psychiatric: appropriate mood/affect, cooperative - Neurologic Neurologic: CNII-XII intact, moves all extremities HEART Score - HEART Score Troponin: Troponin T 0.087 ng/mL (0.00-0.029) H D 01/08/21 03:59 Results - Labs CBC & Chem 7: 01/08/21 03:59 01/08/21 03:59 Labs: Laboratory Last Values WBC 11.3 K/mm3 (4.5-11.0) H 01/08/21 03:59 RBC 3.64 M/mm3 (3.65-5.03) L 01/08/21 03:59 Hgb 11.9 gm/dl (11.8-15.2) 01/08/21 03:59 Hct 35.4 % (35.5-45.6) L 01/08/21 03:59 MCV 98 fl (84-94) H 01/08/21 03:59 MCH 33 pg (28-32) H 01/08/21 03:59 MCHC 34 % (32-34) 01/08/21 03:59 RDW 12.8 % (13.2-15.2) L 01/08/21 03:59 Plt Count 203 K/mm3 (140-440) 01/08/21 03:59 Lymph % (Auto) 18.8 % (13.4-35.0) 01/08/21 03:59 [place] % (Auto) 4.4 % (0.0-7.3) 01/08/21 03:59 Eos % (Auto) 0.8 % (0.0-4.3) 01/08/21 03:59 Baso % (Auto) 0.3 % (0.0-1.8) 01/08/21 03:59 Lymph # (Auto) 2.1 K/mm3 (1.2-5.4) 01/08/21 03:59 [place] # (Auto) 0.5 K/mm3 (0.0-0.8) 01/08/21 03:59 Eos # (Auto) 0.1 K/mm3 (0.0-0.4) 01/08/21 03:59 Baso # (Auto) 0.0 K/mm3 (0.0-0.1) 01/08/21 03:59 Add Manual Diff Complete 01/07/21 07:10 Total Counted 100 01/07/21 07:10 Seg Neutrophils % 75.7 % (40.0-70.0) H 01/08/21 03:59 Seg Neuts % (Manual) 84.0 % (40.0-70.0) H 01/07/21 07:10 Band Neutrophils % 1.0 % 01/07/21 07:10 Lymphocytes % (Manual) 11.0 % (13.4-35.0) L 01/07/21 07:10 Monocytes % (Manual) 3.0 % (0.0-7.3) 01/07/21 07:10 Eosinophils % (Manual) 1.0 % (0.0-4.3) 01/07/21 07:10 Nucleated RBC % Not Reportable 01/07/21 07:10 Seg Neutrophils # 8.5 K/mm3 (1.8-7.7) H 01/08/21 03:59 Seg Neutrophils # Man 17.8 K/mm3 (1.8-7.7) H 01/07/21 07:10 Band Neutrophils # 0.2 K/mm3 01/07/21 07:10 Lymphocytes # (Manual) 2.3 K/mm3 (1.2-5.4) 01/07/21 07:10 Abs React Lymphs (Man) 0.0 K/mm3 01/07/21 07:10 Monocytes # (Manual) 0.6 K/mm3 (0.0-0.8) 01/07/21 07:10 Eosinophils # (Manual) 0.2 K/mm3 (0.0-0.4) 01/07/21 07:10 Basophils # (Manual) 0.0 K/mm3 (0.0-0.1) 01/07/21 07:10 Metamyelocytes # 0.0 K/mm3 01/07/21 07:10 Myelocytes # 0.0 K/mm3 01/07/21 07:10 Promyelocytes # 0.0 K/mm3 01/07/21 07:10 Blast Cells # 0.0 K/mm3 01/07/21 07:10 WBC Morphology Not Reportable 01/07/21 07:10 Hypersegmented Neuts Not Reportable 01/07/21 07:10 Hyposegmented Neuts Not Reportable 01/07/21 07:10 Hypogranular Neuts Not Reportable 01/07/21 07:10 Smudge Cells Not Reportable 01/07/21 07:10 Toxic Granulation Not Reportable 01/07/21 07:10 Toxic Vacuolation Not Reportable 01/07/21 07:10 Dohle Bodies Not Reportable 01/07/21 07:10 Pelger-Huet Anomaly Not Reportable 01/07/21 07:10 Giancarlo Rods Not Reportable 01/07/21 07:10 Platelet Estimate Consistent w auto 01/07/21 07:10 Clumped Platelets Not Reportable 01/07/21 07:10 Plt Clumps, EDTA Not Reportable 01/07/21 07:10 Large Platelets Not Reportable 01/07/21 07:10 Giant Platelets Not Reportable 01/07/21 07:10 Platelet Satelliting Not Reportable 01/07/21 07:10 Plt Morphology Comment Not Reportable 01/07/21 07:10 RBC Morphology Normal 01/07/21 07:10 Dimorphic RBCs Not Reportable 01/07/21 07:10 Polychromasia Not Reportable 01/07/21 07:10 Hypochromasia Not Reportable 01/07/21 07:10 Poikilocytosis Not Reportable 01/07/21 07:10 Anisocytosis Not Reportable 01/07/21 07:10 Microcytosis Not Reportable 01/07/21 07:10 Macrocytosis Not Reportable 01/07/21 07:10 Spherocytes Not Reportable 01/07/21 07:10 Pappenheimer Bodies Not Reportable 01/07/21 07:10 Sickle Cells Not Reportable 01/07/21 07:10 Target Cells Not Reportable 01/07/21 07:10 Tear Drop Cells Not Reportable 01/07/21 07:10 Ovalocytes Not Reportable 01/07/21 07:10 Helmet Cells Not Reportable 01/07/21 07:10 [place]bert Bodies Not Reportable 01/07/21 07:10 [place] Rings Not Reportable 01/07/21 07:10 [place] Cells Not Reportable 01/07/21 07:10 Bite Cells Not Reportable 01/07/21 07:10 Crenated Cell Not Reportable 01/07/21 07:10 Elliptocytes Not Reportable 01/07/21 07:10 Acanthocytes (Spur) Not Reportable 01/07/21 07:10 Rouleaux Not Reportable 01/07/21 07:10 Hemoglobin C Crystals Not Reportable 01/07/21 07:10 Schistocytes Not Reportable 01/07/21 07:10 Malaria parasites Not Reportable 01/07/21 07:10 [place] Bodies Not Reportable 01/07/21 07:10 Hem Pathologist Commnt No 01/07/21 07:10 PT 13.1 Sec. (12.2-14.9) 01/07/21 03:52 INR 0.94 (0.87-1.13) 01/07/21 03:52 APTT 27.1 Sec. (24.2-36.6) 01/07/21 03:52 Heparin Anti-Xa Level 0.32 U.I./ml (0.3-0.7) 01/08/21 03:59 ABG pH 7.223 (7.320-7.450) L 01/07/21 03:31 POC ABG pCO2 50.3 mmHg (32.0-48.0) H 01/07/21 03:31 POC ABG pO2 72.4 mmHg (83-108) L 01/07/21 03:31 POC ABG HCO3 20.3 01/07/21 03:31 ABG O2 Saturation 92.5 (0-100) 01/07/21 03:31 POC ABG Base Excess -7.5 01/07/21 03:31 ABG Hemoglobin 12.8 (12.0-17.5) 01/07/21 03:31 ABG Oxyhemoglobin 89.4 (94-98) L 01/07/21 03:31 ABG Methemoglobin 0.3 (0.0-1.5) 01/07/21 03:31 ABG Sodium 137.3 mmol/L (136.0-145.0) 01/07/21 03:31 ABG Potassium 3.8 mmol/L (3.40-4.50) 01/07/21 03:31 ABG Chloride 107.0 mmol/L (98-107) 01/07/21 03:31 ABG Glucose 48 mg/dL (65-95) L 01/07/21 03:31 Carboxyhemoglobin 3.1 (0.5-1.5) H 01/07/21 03:31 FiO2 % 21.0 01/07/21 03:31 Sodium 140 mmol/L (137-145) 01/08/21 03:59 Potassium 4.0 mmol/L (3.6-5.0) 01/08/21 03:59 Chloride 104.8 mmol/L (98-107) 01/08/21 03:59 Carbon Dioxide 26 mmol/L (22-30) D 01/08/21 03:59 Anion Gap 13 mmol/L 01/08/21 03:59 BUN 9 mg/dL (9-20) 01/08/21 03:59 Creatinine 0.8 mg/dL (0.8-1.3) 01/08/21 03:59 Estimated GFR > 60 ml/min 01/08/21 03:59 BUN/Creatinine Ratio 11 % 01/08/21 03:59 Glucose 104 mg/dL (75-100) H 01/08/21 03:59 Lactic Acid 1.30 mmol/L (0.7-2.0) 01/08/21 03:59 Calcium 8.5 mg/dL (8.4-10.2) 01/08/21 03:59 Total Bilirubin < 0.20 mg/dL (0.1-1.2) 01/07/21 01:52 Total Bilirubin < 0.20 mg/dL (0.1-1.2) 01/07/21 01:52 Direct Bilirubin < 0.2 mg/dL (0-0.2) 01/07/21 01:52 Indirect Bilirubin 0.0 mg/dL 01/07/21 01:52 AST 296 units/L (5-40) H 01/07/21 01:52 AST 297 units/L (5-40) H 01/07/21 01:52 ALT 319 units/L (7-56) H 01/07/21 01:52 ALT 320 units/L (7-56) H 01/07/21 01:52 Alkaline Phosphatase 79 units/L (35-129) 01/07/21 01:52 Alkaline Phosphatase 79 units/L (35-129) 01/07/21 01:52 Ammonia 47.0 umol/L (25-60) 01/07/21 01:52 Total Creatine Kinase 884 units/L (55-170) H 01/07/21 08:33 CK-MB (CK-2) 24.7 ng/mL (0.0-4.0) H 01/07/21 08:33 CK-MB (CK-2) Rel Index 2.7 (0-4) 01/07/21 08:33 Troponin T 0.087 ng/mL (0.00-0.029) H D 01/08/21 03:59 Total Protein 7.1 g/dL (6.3-8.2) 01/07/21 01:52 Total Protein 7.2 g/dL (6.3-8.2) 01/07/21 01:52 Albumin 4.1 g/dL (3.9-5) 01/07/21 01:52 Albumin 4.1 g/dL (3.9-5) 01/07/21 01:52 Albumin/Globulin Ratio 1.3 % 01/07/21 01:52 Albumin/Globulin Ratio 1.4 % 01/07/21 01:52 Triglycerides 165 mg/dL (2-149) H 01/07/21 01:52 Cholesterol 170 mg/dL (50-199) 01/07/21 01:52 LDL Cholesterol Direct 94 mg/dL (50-130) 01/07/21 01:52 HDL Cholesterol 64 mg/dL (40-59) H 01/07/21 01:52 Cholesterol/HDL Ratio 2.65 % 01/07/21 01:52 TSH 1.160 mlU/mL (0.270-4.200) 01/07/21 01:52 Arterial Blood Glucose 48 mg/dL (65-95) L 01/07/21 03:31 Arterial Blood Ionized Calcium 4.5 mg/dL (4.6-5.3) L 01/07/21 03:31 Urine Color Yellow (Yellow) 01/07/21 01:24 Urine Turbidity Slightly-cloudy (Clear) 01/07/21 01:24 Urine pH 6.0 (5.0-7.0) 01/07/21 01:24 Ur Specific [place] 1.009 (1.003-1.030) 01/07/21 01:24 Urine Protein 100 mg/dl mg/dL (Negative) 01/07/21 01:24 Urine Glucose (UA) 50 mg/dL (Negative) 01/07/21 01:24 Urine Ketones Neg mg/dL (Negative) 01/07/21 01:24 Urine Blood Sm (Negative) 01/07/21 01:24 Urine Nitrite Neg (Negative) 01/07/21 01:24 Urine Bilirubin Neg (Negative) 01/07/21 01:24 Urine Urobilinogen < 2.0 mg/dL (<2.0) 01/07/21 01:24 Ur Leukocyte Esterase Neg (Negative) 01/07/21 01:24 Urine WBC (Auto) 6.0 /HPF (0.0-6.0) 01/07/21 01:24 Urine RBC (Auto) 1.0 /HPF (0.0-6.0) 01/07/21 01:24 U Epithel Cells (Auto) 1.0 /HPF (0-13.0) 01/07/21 01:24 Urine Bacteria (Auto) 1+ /HPF (Negative) 01/07/21 01:24 Hyaline Casts 4 /LPF 01/07/21 01:24 Urine Mucus Few /HPF 01/07/21 01:24 Salicylates < 0.3 mg/dL (2.8-20.0) L 01/07/21 01:52 Urine Opiates Screen Negative 01/07/21 12:51 Urine Methadone Screen Negative 01/07/21 12:51 Acetaminophen 5.0 ug/mL (10.0-30.0) L 01/07/21 01:52 Ur Barbiturates Screen Negative 01/07/21 12:51 Ur Phencyclidine Scrn Negative 01/07/21 12:51 Ur Amphetamines Screen Negative 01/07/21 12:51 U Benzodiazepines Scrn Negative 01/07/21 12:51 Urine Cocaine Screen Presumptive positive 01/07/21 12:51 U Marijuana (THC) Screen Negative 01/07/21 12:51 Drugs of Abuse Note Disclamer 01/07/21 12:51 Plasma/Serum Alcohol 0.03 % (0-0.07) 01/07/21 01:52 Microbiology: Microbiology 01/07/21 04:54 Peripheral/Venous Blood Culture - Preliminary NO GROWTH AFTER 24 HOURS 01/07/21 05:04 Peripheral/Venous Blood Culture - Preliminary NO GROWTH AFTER 24 HOURS [place]/IV: Voiding Method Urinal Active Medications - Current Medications Current Medications: Generic Name Dose Route Start Last Admin Trade Name Freq PRN Reason Stop Dose Admin Acetaminophen 650 mg 01/07/21 04:59 Acetaminophen 325 Mg Tab PO Q6H PRN Pain, Mild (1-3) Albuterol 2.5 mg 01/07/21 04:59 Albuterol 2.5 Mg/3 Ml Nebu IH Q3HRT PRN Shortness Of Breath Aspirin 81 mg 01/08/21 10:00 Aspirin 81 Mg Tab Chew PO QDAY NEVA Atorvastatin Calcium 40 mg 01/07/21 22:00 01/07/21 22:11 Atorvastatin 40 Mg Tab PO 40 mg QHS NEVA Administration Famotidine 20 mg 01/08/21 10:00 Famotidine 20 Mg Tab PO BID NEVA Hydralazine HCl 10 mg 01/07/21 05:04 Hydralazine 20 Mg/1 Ml Inj IV Q6H PRN SBP >/=160; DBP >/=100 Heparin Sodium/Sodium Chloride 25,000 unit in 500 mls @ 20 mls/hr 01/07/21 05:00 01/08/21 05:52 Heparin/ 0.45% Nacl-25,000 Unit/500 Ml IV 1,150 units/hr TITRATE NEVA 23 mls/hr Titration Protocol 1,000 UNITS/HR Dextrose/Sodium Chloride 1,000 mls @ 100 mls/hr 01/07/21 05:00 01/08/21 03:29 D5/0.45ns IV 100 mls/hr DIRECT NEVA Administration Ceftriaxone Sodium 2 gm in 100 mls @ 200 mls/hr 01/08/21 04:00 01/08/21 03:27 Rocephin/Ns 2 Gm/100 Ml IV 200 mls/hr Q24H NEVA Administration Protocol Morphine Sulfate 2 mg 01/07/21 05:04 Morphine 2 Mg/1 Ml Inj IV Q4H PRN Pain , Severe (7-10) Nitroglycerin 0.4 mg 01/07/21 04:59 Nitroglycerin 0.4 Mg Tab Subl SL Q5M PRN Chest Pain Ondansetron HCl 4 mg 01/07/21 04:59 01/07/21 06:21 Ondansetron 4 Mg/2 Ml Inj IV 4 mg Q8H PRN Administration Nausea And Vomiting Sodium Chloride 10 ml 01/07/21 10:00 01/07/21 22:12 Sodium Chloride 0.9% 10 Ml Flush Syringe IV 10 ml BID NEVA Administration Sodium Chloride 10 ml 01/07/21 04:59 Sodium Chloride 0.9% 10 Ml Flush Syringe IV PRN PRN LINE FLUSH Tramadol HCl 50 mg 01/07/21 04:59 Tramadol 50 Mg Tab PO Q6H PRN Pain, Moderate (4-6)
[2021-01-08] MEDS: ASPIRIN 81 MG TAB CHEW PO SCH (09:17)
[2021-01-08] MEDS: FAMOTIDINE 20 MG TAB PO SCH ×2 (09:17→22:07)
--- NOTE | 2021-01-08 10:31 | Progress Note ---
Assessment and Plan - Patient Problems (1) Elevated troponin Current Visit: Yes Status: Acute Plan to address problem: Nonspecific troponin elevation in the setting of alcohol and cocaine abuse. Normal LVEF by echocardiogram. Subjective Date of service: 01/08/21 Interval history: Patient is resting in bed comfortably. No cardiac complaints. Objective Vital Signs Temp Pulse Pulse Resp BP Pulse Ox 01/08/21 10:00 61 21 147/80 90 01/08/21 09:00 63 12 110/64 92 01/08/21 08:21 57 L 94 01/08/21 08:00 98 F 58 L 20 134/74 92 01/08/21 07:00 59 L 13 120/59 98 01/08/21 06:00 60 14 120/59 95 01/08/21 05:00 60 12 119/59 91 01/08/21 04:27 99.2 F 01/08/21 04:05 57 L 01/08/21 04:00 68 57 L 11 L 100/61 94 01/08/21 03:00 59 L 14 141/82 98 01/08/21 02:00 69 17 146/80 87 01/08/21 01:00 60 16 146/80 95 01/08/21 00:53 56 L 12 95 01/08/21 00:00 97.3 F L 56 L 12 139/84 95 01/07/21 23:55 56 L 01/07/21 23:10 87 19 127/78 89 01/07/21 23:09 92 H 18 127/78 90 01/07/21 23:00 56 L 14 127/78 01/07/21 22:50 54 L 12 131/76 89 01/07/21 22:40 65 18 131/76 91 01/07/21 22:30 53 L 17 131/76 86 01/07/21 22:00 89 19 156/74 94 01/07/21 21:00 59 L 23 156/74 92 01/07/21 20:30 55 L 16 139/66 96 01/07/21 20:08 94 01/07/21 20:02 98.2 F 01/07/21 20:00 51 L 51 L 17 139/66 95 01/07/21 19:30 49 L 13 138/64 95 01/07/21 19:10 49 L 01/07/21 19:00 70 14 127/62 99 01/07/21 18:30 52 L 17 127/62 98 01/07/21 18:10 48 L 11 L 127/62 98 01/07/21 18:00 49 L 12 127/62 97 01/07/21 17:50 48 L 13 112/74 95 01/07/21 17:40 52 L 13 112/74 94 01/07/21 17:31 97.9 F 01/07/21 17:30 51 L 16 112/74 94 01/07/21 17:20 69 16 121/71 81 L 01/07/21 17:10 49 L 12 121/71 96 01/07/21 17:00 49 L 9 L 121/71 96 01/07/21 16:50 50 L 8 L 112/74 96 01/07/21 16:40 51 L 10 L 112/74 97 01/07/21 16:30 51 L 8 L 112/74 95 01/07/21 16:20 50 L 9 L 115/64 96 01/07/21 16:10 54 L 13 115/64 96 01/07/21 16:00 55 L 14 115/64 97 01/07/21 15:51 12 01/07/21 15:50 52 L 11 L 115/64 97 01/07/21 15:40 50 L 11 L 115/64 98 01/07/21 15:30 50 L 12 115/64 96 01/07/21 15:20 61 22 115/64 96 01/07/21 15:10 53 L 16 115/64 99 01/07/21 15:00 53 L 10 L 115/64 97 01/07/21 14:50 52 L 12 105/66 99 01/07/21 14:40 53 L 10 L 106/56 99 01/07/21 14:30 50 L 8 L 106/56 98 01/07/21 14:20 52 L 13 106/56 99 01/07/21 14:10 51 L 15 106/56 99 01/07/21 14:00 56 L 15 106/56 99 01/07/21 13:50 52 L 10 L 106/56 01/07/21 13:40 49 L 8 L 98 01/07/21 13:30 50 L 11 L 106/56 97 01/07/21 13:22 64 13 106/56 88 01/07/21 13:11 57 L 17 106/56 90 01/07/21 13:00 50 L 9 L 106/56 95 01/07/21 12:51 58 L 16 116/52 98 01/07/21 12:41 54 L 10 L 116/52 98 01/07/21 12:31 54 L 12 116/52 95 01/07/21 12:21 60 16 116/52 91 01/07/21 12:11 52 L 10 L 116/52 87 01/07/21 12:00 97.8 F 52 L 9 L 116/52 88 01/07/21 11:51 12 01/07/21 11:50 54 L 11 L 108/55 84 01/07/21 11:41 52 L 10 L 108/55 100 01/07/21 11:31 53 L 9 L 108/55 96 01/07/21 11:21 52 L 10 L 108/55 86 01/07/21 11:11 54 L 11 L 108/55 95 01/07/21 11:00 53 L 12 108/55 94 01/07/21 10:51 52 L 10 L 94/61 98 01/07/21 10:41 53 L 14 94/61 96 01/07/21 10:31 64 12 94/61 98 - Physical Examination General: No Apparent Distress HEENT: Positive: PERRL Neck: Positive: neck supple Cardiac: Positive: Reg Rate and Rhythm Lungs: Positive: Decreased Breath Sounds Neuro: Positive: Grossly Intact Extremities: Absent: edema - Labs and Meds CBC 01/08/21 Range/Units 03:59 WBC 11.3 H (4.5-11.0) K/mm3 RBC 3.64 L (3.65-5.03) M/mm3 Hgb 11.9 (11.8-15.2) gm/dl Hct 35.4 L (35.5-45.6) % Plt Count 203 (140-440) K/mm3 Lymph # (Auto) 2.1 (1.2-5.4) K/mm3 [place] # (Auto) 0.5 (0.0-0.8) K/mm3 Eos # (Auto) 0.1 (0.0-0.4) K/mm3 Baso # (Auto) 0.0 (0.0-0.1) K/mm3 Comprehensive Metabolic Panel 01/08/21 Range/Units 03:59 Sodium 140 (137-145) mmol/L Potassium 4.0 (3.6-5.0) mmol/L Chloride 104.8 (98-107) mmol/L Carbon Dioxide 26 D (22-30) mmol/L BUN 9 (9-20) mg/dL Creatinine 0.8 (0.8-1.3) mg/dL Glucose 104 H (75-100) mg/dL Calcium 8.5 (8.4-10.2) mg/dL
[2021-01-08] MEDS ORDERED: SODIUM CHLORIDE 0.9% 500 ML 500 ML IV SCH (11:00)
[2021-01-09] MEDS: cefTRIAXone/NS 2 GM/100 ML 2 GM/100 ML BAG IV SCH (04:22)
[2021-01-09] MEDS: HEPARIN/ 0.45% NACL DRIP 25,000 UNIT/500 ML BAG IV SCH (04:22)
[2021-01-09 05:25] LABS: Basophils # (Auto) 0.1 K/mm3 (0.0-0.1); Eosinophils # (Auto) 0.2 K/mm3 (0.0-0.4); Eosinophils % (Auto) 1.7 % (0.0-4.3); Hematocrit 35.9 % (35.5-45.6); Hemoglobin 12.7 gm/dl (11.8-15.2); Lymphocytes # (Auto) 2.7 K/mm3 (1.2-5.4); Lymphocytes % (Auto) 27.3 % (13.4-35.0); Mean Corpuscular HGB Conc 35 % (32-34); Mean Corpuscular Volume 95 fl (84-94); Monocytes # (Auto) 0.6 K/mm3 (0.0-0.8); Monocytes % (Auto) 6.2 % (0.0-7.3); Platelet Count 211 K/mm3 (140-440); Red Blood Count 3.77 M/mm3 (3.65-5.03); Red Cell Distribution Width 12.5 % (13.2-15.2)
[2021-01-09 05:38] LABS: Partial Thromboplastin Time 39.9 Sec. (24.2-36.6)
[2021-01-09 05:44] LABS: Blood Urea Nitrogen 8 mg/dL (9-20); Calcium 8.9 mg/dL (8.4-10.2); Hemolysis Index 6
[2021-01-09 05:49] LABS: BUN/Creatinine Ratio 11
[2021-01-09] MEDS ORDERED: HEPARIN 10,000 UNITS/10 ML VIAL IV ONE ×2 (05:49→07:00)
[2021-01-09] MEDS: ASPIRIN 81 MG TAB CHEW PO SCH ×2 (07:47→11:43)
[2021-01-09] MEDS ORDERED: SODIUM CHLORIDE 0.9% 500 ML 500 ML IV SCH (08:00)
[2021-01-09] MEDS ORDERED: HEPARIN/NS 5000 UNIT/500ML 1,000 ML IR ONE (08:11)
[2021-01-09] MEDS ORDERED: NITROGLYCERIN SYRINGE 3 ML ONE (08:12)
[2021-01-09] MEDS: fentaNYL 100 MCG/2 ML INJ ONE ×4 (09:03→09:13)
[2021-01-09] MEDS: MIDAZOLAM 2 MG/2 ML INJ ONE ×2 (09:03→09:09)
[2021-01-09] MEDS: LIDOCAINE (2%) 20 MG/1 ML VIAL 20 ML MDV INFILTRATI ONE ×2 (09:04→09:09)
[2021-01-09] MEDS: HEPARIN 10,000 UNITS/10 ML VIAL ONE ×2 (09:04→09:10)
[2021-01-09] MEDS: VERAPAMIL 5 MG/2 ML INJ ONE ×2 (09:04→09:10)
--- NOTE | 2021-01-09 09:52 | Progress Note ---
Assessment and Plan Assessment and plan: Scheduled for heart cath today -- NSTEMI (non-ST elevated myocardial infarction) Current Visit: Yes Status: Acute Continue current cardiac medications Echo; EF 55 to 60% Management per cardiology -- RM (acute kidney injury) Current Visit: Yes Status: Acute/resolved. Vasomotor nephropathy, renal function back to normal level Monitor renal function, avoid nephrotoxins --Acute metabolic encephalopathy acute Current Visit: Yes Status: Acute Multifactorial most likely secondary to acute TX cocaine abuse and RM. Treat the underlying cause and supportive care --Cocaine abuse Current Visit: Yes Status: Acute Strongly advised to quit recreational drug use Cardiac symptoms probably cocaine related --Ongoing tobacco use; Current Visit: Yes Status: Acute Strongly advised smoking cessation Risks and complications of prolonged smoking advised the patient -Hypoxemia/respiratory distress; POA Current Visit: Yes Status: Acute Requiring supplemental oxygen oxygen via nasal cannula 3-4 L/min. Wean as tolerated , home O2 evaluation at discharge Supportive care --Leukocytosis Current Visit: Yes Status: Acute Empiric antibiotic Rocephin 2 g IV daily Follow blood cultures -- DVT prophylaxis Current Visit: Yes Status: Acute Plan to address problem: Heparin 5000 units subcu every 8 hours for DVT prophylaxis. --GI prophylaxis ;Pepcid 20 mg IV every 12 hours --Full CODE STATUS We will closely monitor patient and adjust the management as needed Follow cardiology evaluation recommendations We will transfer the patient to telemetry Plan of care reviewed with the patient and his nurse 01/08/2021; Patient admitted with non-ST elevation TX, cocaine abuse Multiple risk factors, cardiology evaluated the patient Possible heart cath tomorrow We will transfer the patient to telemetry History Interval history: Scheduled for heart cath today Hospitalist Physical - Constitutional Vitals: Temp Pulse Resp BP Pulse Ox 98.2 F 58 L 18 159/86 93 01/09/21 03:47 01/09/21 04:00 01/09/21 03:47 01/09/21 03:47 01/09/21 03:47 General appearance: Present: no acute distress, well-nourished HEART Score - HEART Score Troponin: Troponin T 0.087 ng/mL (0.00-0.029) H D 01/08/21 03:59 Results - Labs CBC & Chem 7: 01/09/21 04:31 01/09/21 04:31 Labs: Laboratory Last Values WBC 9.7 K/mm3 (4.5-11.0) 01/09/21 04:31 RBC 3.77 M/mm3 (3.65-5.03) 01/09/21 04:31 Hgb 12.7 gm/dl (11.8-15.2) 01/09/21 04:31 Hct 35.9 % (35.5-45.6) 01/09/21 04:31 MCV 95 fl (84-94) H 01/09/21 04:31 MCH 34 pg (28-32) H 01/09/21 04:31 MCHC 35 % (32-34) H 01/09/21 04:31 RDW 12.5 % (13.2-15.2) L 01/09/21 04:31 Plt Count 211 K/mm3 (140-440) 01/09/21 04:31 Lymph % (Auto) 27.3 % (13.4-35.0) 01/09/21 04:31 Phillips % (Auto) 6.2 % (0.0-7.3) 01/09/21 04:31 Eos % (Auto) 1.7 % (0.0-4.3) 01/09/21 04:31 Baso % (Auto) 1.0 % (0.0-1.8) 01/09/21 04:31 Lymph # (Auto) 2.7 K/mm3 (1.2-5.4) 01/09/21 04:31 Phillips # (Auto) 0.6 K/mm3 (0.0-0.8) 01/09/21 04:31 Eos # (Auto) 0.2 K/mm3 (0.0-0.4) 01/09/21 04:31 Baso # (Auto) 0.1 K/mm3 (0.0-0.1) 01/09/21 04:31 Add Manual Diff Complete 01/07/21 07:10 Total Counted 100 01/07/21 07:10 Seg Neutrophils % 63.8 % (40.0-70.0) 01/09/21 04:31 Seg Neuts % (Manual) 84.0 % (40.0-70.0) H 01/07/21 07:10 Band Neutrophils % 1.0 % 01/07/21 07:10 Lymphocytes % (Manual) 11.0 % (13.4-35.0) L 01/07/21 07:10 Monocytes % (Manual) 3.0 % (0.0-7.3) 01/07/21 07:10 Eosinophils % (Manual) 1.0 % (0.0-4.3) 01/07/21 07:10 Nucleated RBC % Not Reportable 01/07/21 07:10 Seg Neutrophils # 6.2 K/mm3 (1.8-7.7) 01/09/21 04:31 Seg Neutrophils # Man 17.8 K/mm3 (1.8-7.7) H 01/07/21 07:10 Band Neutrophils # 0.2 K/mm3 01/07/21 07:10 Lymphocytes # (Manual) 2.3 K/mm3 (1.2-5.4) 01/07/21 07:10 Abs React Lymphs (Man) 0.0 K/mm3 01/07/21 07:10 Monocytes # (Manual) 0.6 K/mm3 (0.0-0.8) 01/07/21 07:10 Eosinophils # (Manual) 0.2 K/mm3 (0.0-0.4) 01/07/21 07:10 Basophils # (Manual) 0.0 K/mm3 (0.0-0.1) 01/07/21 07:10 Metamyelocytes # 0.0 K/mm3 01/07/21 07:10 Myelocytes # 0.0 K/mm3 01/07/21 07:10 Promyelocytes # 0.0 K/mm3 01/07/21 07:10 Blast Cells # 0.0 K/mm3 01/07/21 07:10 WBC Morphology Not Reportable 01/07/21 07:10 Hypersegmented Neuts Not Reportable 01/07/21 07:10 Hyposegmented Neuts Not Reportable 01/07/21 07:10 Hypogranular Neuts Not Reportable 01/07/21 07:10 Smudge Cells Not Reportable 01/07/21 07:10 Toxic Granulation Not Reportable 01/07/21 07:10 Toxic Vacuolation Not Reportable 01/07/21 07:10 Dohle Bodies Not Reportable 01/07/21 07:10 Pelger-Huet Anomaly Not Reportable 01/07/21 07:10 Giancarlo Rods Not Reportable 01/07/21 07:10 Platelet Estimate Consistent w auto 01/07/21 07:10 Clumped Platelets Not Reportable 01/07/21 07:10 Plt Clumps, EDTA Not Reportable 01/07/21 07:10 Large Platelets Not Reportable 01/07/21 07:10 Giant Platelets Not Reportable 01/07/21 07:10 Platelet Satelliting Not Reportable 01/07/21 07:10 Plt Morphology Comment Not Reportable 01/07/21 07:10 RBC Morphology Normal 01/07/21 07:10 Dimorphic RBCs Not Reportable 01/07/21 07:10 Polychromasia Not Reportable 01/07/21 07:10 Hypochromasia Not Reportable 01/07/21 07:10 Poikilocytosis Not Reportable 01/07/21 07:10 Anisocytosis Not Reportable 01/07/21 07:10 Microcytosis Not Reportable 01/07/21 07:10 Macrocytosis Not Reportable 01/07/21 07:10 Spherocytes Not Reportable 01/07/21 07:10 Pappenheimer Bodies Not Reportable 01/07/21 07:10 Sickle Cells Not Reportable 01/07/21 07:10 Target Cells Not Reportable 01/07/21 07:10 Tear Drop Cells Not Reportable 01/07/21 07:10 Ovalocytes Not Reportable 01/07/21 07:10 Helmet Cells Not Reportable 01/07/21 07:10 [place] Bodies Not Reportable 01/07/21 07:10 [place] Rings Not Reportable 01/07/21 07:10 [place] Cells Not Reportable 01/07/21 07:10 Bite Cells Not Reportable 01/07/21 07:10 Crenated Cell Not Reportable 01/07/21 07:10 Elliptocytes Not Reportable 01/07/21 07:10 Acanthocytes (Spur) Not Reportable 01/07/21 07:10 Rouleaux Not Reportable 01/07/21 07:10 Hemoglobin C Crystals Not Reportable 01/07/21 07:10 Schistocytes Not Reportable 01/07/21 07:10 Malaria parasites Not Reportable 01/07/21 07:10 [place] Bodies Not Reportable 01/07/21 07:10 Hem Pathologist Commnt No 01/07/21 07:10 PT 13.7 Sec. (12.2-14.9) 01/09/21 04:31 INR 1.00 (0.87-1.13) 01/09/21 04:31 APTT 39.9 Sec. (24.2-36.6) H 01/09/21 04:31 Heparin Anti-Xa Level < 0.10 U.I./ml (0.3-0.7) L 01/09/21 04:31 ABG pH 7.223 (7.320-7.450) L 01/07/21 03:31 POC ABG pCO2 50.3 mmHg (32.0-48.0) H 01/07/21 03:31 POC ABG pO2 72.4 mmHg (83-108) L 01/07/21 03:31 POC ABG HCO3 20.3 01/07/21 03:31 ABG O2 Saturation 92.5 (0-100) 01/07/21 03:31 POC ABG Base Excess -7.5 01/07/21 03:31 ABG Hemoglobin 12.8 (12.0-17.5) 01/07/21 03:31 ABG Oxyhemoglobin 89.4 (94-98) L 01/07/21 03:31 ABG Methemoglobin 0.3 (0.0-1.5) 01/07/21 03:31 ABG Sodium 137.3 mmol/L (136.0-145.0) 01/07/21 03:31 ABG Potassium 3.8 mmol/L (3.40-4.50) 01/07/21 03:31 ABG Chloride 107.0 mmol/L (98-107) 01/07/21 03:31 ABG Glucose 48 mg/dL (65-95) L 01/07/21 03:31 Carboxyhemoglobin 3.1 (0.5-1.5) H 01/07/21 03:31 FiO2 % 21.0 01/07/21 03:31 Sodium 140 mmol/L (137-145) 01/09/21 04:31 Potassium 3.7 mmol/L (3.6-5.0) 01/09/21 04:31 Chloride 104.2 mmol/L (98-107) 01/09/21 04:31 Carbon Dioxide 27 mmol/L (22-30) 01/09/21 04:31 Anion Gap 13 mmol/L 01/09/21 04:31 BUN 8 mg/dL (9-20) L 01/09/21 04:31 Creatinine 0.7 mg/dL (0.8-1.3) L 01/09/21 04:31 Estimated GFR > 60 ml/min 01/09/21 04:31 BUN/Creatinine Ratio 11 % 01/09/21 04:31 Glucose 97 mg/dL (75-100) 01/09/21 04:31 Lactic Acid 1.30 mmol/L (0.7-2.0) 01/08/21 03:59 Calcium 8.9 mg/dL (8.4-10.2) 01/09/21 04:31 Total Bilirubin < 0.20 mg/dL (0.1-1.2) 01/07/21 01:52 Total Bilirubin < 0.20 mg/dL (0.1-1.2) 01/07/21 01:52 Direct Bilirubin < 0.2 mg/dL (0-0.2) 01/07/21 01:52 Indirect Bilirubin 0.0 mg/dL 01/07/21 01:52 AST 296 units/L (5-40) H 01/07/21 01:52 AST 297 units/L (5-40) H 01/07/21 01:52 ALT 319 units/L (7-56) H 01/07/21 01:52 ALT 320 units/L (7-56) H 01/07/21 01:52 Alkaline Phosphatase 79 units/L (35-129) 01/07/21 01:52 Alkaline Phosphatase 79 units/L (35-129) 01/07/21 01:52 Ammonia 47.0 umol/L (25-60) 01/07/21 01:52 Total Creatine Kinase 884 units/L (55-170) H 01/07/21 08:33 CK-MB (CK-2) 24.7 ng/mL (0.0-4.0) H 01/07/21 08:33 CK-MB (CK-2) Rel Index 2.7 (0-4) 01/07/21 08:33 Troponin T 0.087 ng/mL (0.00-0.029) H D 01/08/21 03:59 Total Protein 7.1 g/dL (6.3-8.2) 01/07/21 01:52 Total Protein 7.2 g/dL (6.3-8.2) 01/07/21 01:52 Albumin 4.1 g/dL (3.9-5) 01/07/21 01:52 Albumin 4.1 g/dL (3.9-5) 01/07/21 01:52 Albumin/Globulin Ratio 1.3 % 01/07/21 01:52 Albumin/Globulin Ratio 1.4 % 01/07/21 01:52 Triglycerides 165 mg/dL (2-149) H 01/07/21 01:52 Cholesterol 170 mg/dL (50-199) 01/07/21 01:52 LDL Cholesterol Direct 94 mg/dL (50-130) 01/07/21 01:52 HDL Cholesterol 64 mg/dL (40-59) H 01/07/21 01:52 Cholesterol/HDL Ratio 2.65 % 01/07/21 01:52 TSH 1.160 mlU/mL (0.270-4.200) 01/07/21 01:52 Arterial Blood Glucose 48 mg/dL (65-95) L 01/07/21 03:31 Arterial Blood Ionized Calcium 4.5 mg/dL (4.6-5.3) L 01/07/21 03:31 Urine Color Yellow (Yellow) 01/07/21 01:24 Urine Turbidity Slightly-cloudy (Clear) 01/07/21 01:24 Urine pH 6.0 (5.0-7.0) 01/07/21 01:24 Ur Specific [place] 1.009 (1.003-1.030) 01/07/21 01:24 Urine Protein 100 mg/dl mg/dL (Negative) 01/07/21 01:24 Urine Glucose (UA) 50 mg/dL (Negative) 01/07/21 01:24 Urine Ketones Neg mg/dL (Negative) 01/07/21 01:24 Urine Blood Sm (Negative) 01/07/21 01:24 Urine Nitrite Neg (Negative) 01/07/21 01:24 Urine Bilirubin Neg (Negative) 01/07/21 01:24 Urine Urobilinogen < 2.0 mg/dL (<2.0) 01/07/21 01:24 Ur Leukocyte Esterase Neg (Negative) 01/07/21 01:24 Urine WBC (Auto) 6.0 /HPF (0.0-6.0) 01/07/21 01:24 Urine RBC (Auto) 1.0 /HPF (0.0-6.0) 01/07/21 01:24 U Epithel Cells (Auto) 1.0 /HPF (0-13.0) 01/07/21 01:24 Urine Bacteria (Auto) 1+ /HPF (Negative) 01/07/21 01:24 Hyaline Casts 4 /LPF 01/07/21 01:24 Urine Mucus Few /HPF 01/07/21 01:24 Salicylates < 0.3 mg/dL (2.8-20.0) L 01/07/21 01:52 Urine Opiates Screen Negative 01/07/21 12:51 Urine Methadone Screen Negative 01/07/21 12:51 Acetaminophen 5.0 ug/mL (10.0-30.0) L 01/07/21 01:52 Ur Barbiturates Screen Negative 01/07/21 12:51 Ur Phencyclidine Scrn Negative 01/07/21 12:51 Ur Amphetamines Screen Negative 01/07/21 12:51 U Benzodiazepines Scrn Negative 01/07/21 12:51 Urine Cocaine Screen Presumptive positive 01/07/21 12:51 U Marijuana (THC) Screen Negative 01/07/21 12:51 Drugs of Abuse Note Disclamer 01/07/21 12:51 Plasma/Serum Alcohol 0.03 % (0-0.07) 01/07/21 01:52 Microbiology: Microbiology 01/07/21 04:54 Peripheral/Venous Blood Culture - Preliminary NO GROWTH AFTER 48 HOURS 01/07/21 05:04 Peripheral/Venous Blood Culture - Preliminary NO GROWTH AFTER 48 HOURS [place]/IV: Voiding Method Toilet Active Medications - Current Medications Current Medications: Generic Name Dose Route Start Last Admin Trade Name Freq PRN Reason Stop Dose Admin Acetaminophen 650 mg 01/07/21 04:59 Acetaminophen 325 Mg Tab PO Q6H PRN Pain, Mild (1-3) Albuterol 2.5 mg 01/07/21 04:59 Albuterol 2.5 Mg/3 Ml Nebu IH Q3HRT PRN Shortness Of Breath Aspirin 81 mg 01/08/21 10:00 01/09/21 07:47 Aspirin 81 Mg Tab Chew PO 81 mg QDAY NEVA Administration Atorvastatin Calcium 40 mg 01/07/21 22:00 01/08/21 22:07 Atorvastatin 40 Mg Tab PO 40 mg QHS NEVA Administration Famotidine 20 mg 01/08/21 10:00 01/08/21 22:07 Famotidine 20 Mg Tab PO 20 mg BID NEVA Administration Hydralazine HCl 10 mg 01/07/21 05:04 Hydralazine 20 Mg/1 Ml Inj IV Q6H PRN SBP >/=160; DBP >/=100 Heparin Sodium/Sodium Chloride 25,000 unit in 500 mls @ 20 mls/hr 01/07/21 05:00 01/09/21 05:48 Heparin/ 0.45% Nacl-25,000 Unit/500 Ml IV 1,400 units/hr TITRATE NEVA 28 mls/hr Titration Protocol 1,000 UNITS/HR Ceftriaxone Sodium 2 gm in 100 mls @ 200 mls/hr 01/08/21 04:00 01/09/21 04:22 Rocephin/Ns 2 Gm/100 Ml IV 01/12/21 04:29 200 mls/hr Q24H NEVA Administration Protocol Sodium Chloride 500 mls @ 50 mls/hr 01/09/21 08:00 01/09/21 07:58 Nacl 0.9% 500 Ml IV 01/10/21 07:59 50 mls/hr DIRECT NEVA Administration Morphine Sulfate 2 mg 01/07/21 05:04 Morphine 2 Mg/1 Ml Inj IV Q4H PRN Pain , Severe (7-10) Nitroglycerin 0.4 mg 01/07/21 04:59 Nitroglycerin 0.4 Mg Tab Subl SL Q5M PRN Chest Pain Ondansetron HCl 4 mg 01/07/21 04:59 01/07/21 06:21 Ondansetron 4 Mg/2 Ml Inj IV 4 mg Q8H PRN Administration Nausea And Vomiting Sodium Chloride 10 ml 01/07/21 10:00 01/08/21 22:08 Sodium Chloride 0.9% 10 Ml Flush Syringe IV 10 ml BID NEVA Administration Sodium Chloride 10 ml 01/07/21 04:59 Sodium Chloride 0.9% 10 Ml Flush Syringe IV PRN PRN LINE FLUSH Tramadol HCl 50 mg 06/21/21 04:59 Tramadol 50 Mg Tab PO Q6H PRN Pain, Moderate (4-6)
--- NOTE | 2021-01-09 09:56 | Event Note ---
Date: 01/09/21 Cardiac catheterization completed via the right radial approach, no complications. We found essentially angiographically normal coronary arteries, normal left ventricular systolic function, ejection fraction 55 to 60%. No immediate cath complications. Patient is stable for cardiac discharge after routine post catheterization int ravenous hydration.
--- NOTE | 2021-01-09 10:22 | Cardiac Catherization Report ---
DATE OF SERVICE: 01/09/2021 REASON FOR OPERATION: The patient is a 50-year-old man who presented with unresponsiveness following a period of alcohol and cocaine abuse. His troponin levels were elevated, suggesting a non-ST elevation myocardial infarction. This prompted a recommendation for cardiac catheterization and diagnostic coronary angiography. PROCEDURES PERFORMED: 1. Left heart catheterization. 2. Selective left and right coronary angiography. 3. Left ventricular angiography. 4. Sedation time start 908, end 920. DESCRIPTION OF PROCEDURE: The patient was prepped and draped in a sterile fashion after informed consent. The right radial cath site was prepped and draped after negative Akin's test. The right radial artery was entered using Seldinger technique followed by placement of a 6-Serbian hydrophilic sheath. Routine radial cocktail was administered via the sheath. Selective left and right coronary angiography was performed using a 3.5 left Rosa and a 4 right Rosa. The pigtail catheter was used for left ventricular angiography. Catheters were then removed, sheath removed and hemostasis achieved using a TR band. The patient was returned to the postprocedure unit in stable condition. There were no complications. HEMODYNAMICS: Left ventricular end diastolic pressure was 25, following coronary angiography. Ascending aortic pressure 155/85. There was no significant pressure gradient on pullback across the aortic valve. CORONARY ANGIOGRAPHY: Left main coronary artery was angiographically normal. Left anterior descending artery contained mild luminal irregularities in its mid segment, otherwise this vessel and its diagonal branches were free of significant disease. The circumflex artery and its obtuse marginal branches were angiographically normal. The right coronary artery was dominant and similarly angiographically normal. There was normal left ventricular systolic function, with left ventricular ejection fraction 55-60%. CONCLUSION: 1. Mild luminal irregularities of the mid LAD, otherwise essentially normal coronary arteries. 2. Normal left ventricular systolic function, ejection fraction 55-60%. RECOMMENDATION: Risk factor modification and medical therapy. TID: [id number] RECEIPT: [id number] DELORIS MANN
[2021-01-09] MEDS ORDERED: traMADol 50 MG TAB PO PRN (10:30)
[2021-01-09] MEDS ORDERED: SODIUM CHLORIDE 0.9% 1000 ML 1,000 ML IV SCH (10:30)
[2021-01-09 10:55] VITALS: BP 170/73
[2021-01-09] MEDS: FAMOTIDINE 20 MG TAB PO SCH (11:42)
--- NOTE | 2021-01-09 14:08 | Discharge Summary ---
Providers - Providers Date of Admission: 01/07/21 05:17 Date of discharge: 01/09/21 Attending physician: DELPHINE DUNN 01/07/21 Consult to Cardiac Rehabilitation [CONS] Routine Reason For Exam: Phase I 01/07/21 04:43 Consult to Cardiology [CONS] Routine Consulting Provider: BRIDGER MOREL Reason For Exam: NSTEMI 01/09/21 09:53 Consult to Cardiac Rehabilitation [CONS] Routine Reason For Exam: Cardiac Rehab Evaluation Primary care physician: LATEXER Hospitalization Reason for admission: Metabolic encephalopathy/possible drug OD/NSTEMI Condition: Stable Pertinent studies: CT head without contrast; CT head no acute abnormality noted no acute abnormality noted Chest x-ray; chest x-ray no acute abnormality noted Echocardiogram; EF 55 to 60% normal .mild concentric LVH ,no pericardial effusion. Procedures: Left heart catheterization; mild luminal irregularity of the mid LAD Otherwise essentially angiographically normal coronary arteries Normal EF 55 to 60% Hospital course: 50-year-old -Congolese male patient with significant past medical history of cocaine abuse was admitted through emergency room with altered level of consciousness and possible drug overdose Initial work-up is consistent with, acute metabolic encephalopathy And chest pain, patient also has cocaine positive drug screen Admitted to the hospital appropriately managed Evaluated by surveyor oil well directional, medications optimized Subsequently underwent echocardiogram, which showed normal LV function and ejection fraction In view of patient's multiple risk factors patient underwent left heart catheterization Which showed mild irregularity of LAD, otherwise nonobstructive coronary artery disease with normal left ventricular function and ejection fraction. Patient was strongly counseled to quit tobacco use as well as recreational drug use Advised to seek help from drug rehabilitation programs. Patient also has elevated transaminases Probably secondary to drug use as well as alcohol use Patient will follow with GI for further evaluation of alcoholic liver disease . Discharge diagnosis; .-- NSTEMI (non-ST elevated myocardial infarction) Current Visit: Yes Status: Acute Continue current cardiac medications Echo; EF 55 to 60% Management per cardiology -- RM (acute kidney injury) Current Visit: Yes Status: Acute/resolved. Vasomotor nephropathy, renal function back to normal level Monitor renal function, avoid nephrotoxins --Acute metabolic encephalopathy acute Current Visit: Yes Status: Acute Multifactorial most likely secondary to acute TX cocaine abuse and RM. Treat the underlying cause and supportive care --Cocaine abuse Current Visit: Yes Status: Acute Strongly advised to quit recreational drug use Cardiac symptoms probably cocaine related. --Chronic alcohol use; Advised to quit alcohol intake --alcoholic liver disease Advised to quit alcohol intake --Ongoing tobacco use; Current Visit: Yes Status: Acute Strongly advised smoking cessation Risks and complications of prolonged smoking advised the patient. -Hypoxemia/respiratory distress; POA Current Visit: Yes Status: Acute Requiring supplemental oxygen oxygen via nasal cannula 3-4 L/min. Wean as tolerated , home O2 evaluation at discharge Supportive care --Leukocytosis Current Visit: Yes Status: Acute Empiric antibiotic Rocephin 2 g IV daily Follow blood cultures Stable at discharge Disposition: DC-01 TO HOME OR SELFCARE Final Discharge Diagnosis (Prints w/discharge instructions): Non-ST elevation TX. Acute kidney injury[resolved]. Cocaine abuse. Acute metabolic encephalopathy/resolved. Ongoing tobacco use. Acute respiratory distress requiringoxygen. Leukocytosis Time spent for discharge: 35 MIN Core Measure Documentation - Palliative Care Palliative Care/ Comfort Measures: Not Applicable - Core Measures Any of the following diagnoses?: none Exam - Constitutional Vitals: Temp Pulse Resp BP Pulse Ox 98.7 F 69 16 170/73 98 01/09/21 10:15 01/09/21 10:15 01/09/21 10:15 01/09/21 10:15 01/09/21 10:15 General appearance: Present: no acute distress, well-nourished - EENT Eyes: Present: PERRL, EOM intact - Neck Neck: Present: supple, normal ROM - Respiratory Respiratory effort: normal Respiratory: bilateral: diminished, negative: rales, rhonchi, wheezing - Cardiovascular Rhythm: regular Heart Sounds: Present: S1 & S2 - Extremities Extremities: no ischemia, No edema - Abdominal General gastrointestinal: Present: soft, non-tender, non-distended, normal bowel sounds - Integumentary Integumentary: Present: clear, warm - Musculoskeletal Musculoskeletal: strength equal bilaterally, generalized weakness - Psychiatric Psychiatric: appropriate mood/affect, cooperative - Neurologic Neurologic: CNII-XII intact, moves all extremities Plan Activity: advance as tolerated, fall precautions Diet: regular Additional Instructions: Advised to quit smoking. Strongly advised to quit cocaine use. Advised to quit alcohol intake. I advised strongly to seek an joint alcohol rehabilitation program. And consider joining alcohol Anonymous support group. Advised to follow GI doctor for your liver damage due to alcohol/cocaine. If you have worsening symptoms contact MD or go to the nearest emergency room as needed Follow up with: ROGERS NEWTON MD [Staff Physician] - 7 Days PRIMARY CARE, [Primary Care Provider] - 7 Days BRENDA SCHULER MD [Staff Physician] - 7 Days Prescriptions: hydrALAZINE [Apresoline TAB] 10 mg PO Q8H #30 tablet Folic Acid 1 mg PO DAILY #30 tablet Nicotine [Habitrol] 14 mg TD DAILY #30 patch Famotidine [Pepcid] 20 mg PO BID #60 tablet Thiamine HCl [Vitamin B-1] 100 mg PO DAILY #30 tablet
[2021-01-09] MEDS ORDERED: hydrALAZINE 20 MG/1 ML INJ IV SCH (16:30)
--- NOTE | 2021-01-09 19:02 | Electrocardiograph Report ---
[facility] Test Date: 2021-01-07 Test Time: 02:13:55 Pat Name: ZANA SULLIVAN Department: Room: A458 Gender: M Proposal Coordinator: NURSE : 1970 Requested By: MEMO RODRIGUEZ Order Number: [id number] Reading MD: Gregg Tobias Measurements Intervals [place] Rate: 69 P: 69 NM: 189 QRS: 71 QRSD: 92 T: 74 QT: 467 QTc: 500 Interpretive Statements Sinus rhythm Consider left ventricular hypertrophy No previous ECG available for comparison Electronically Signed On 01-09-2021 19:01:48 EDT by Gregg Tobias
--- NOTE | 2021-01-09 19:05 | Electrocardiograph Report ---
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
--- NOTE | 2021-01-09 19:07 | Electrocardiograph Report ---
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
== END 2021-01-09 17:43 | disposition home or self-care (01) | DRG 280 ==
LOC: ED 01:13 → IMCU 05:17 → 4A 01-08 13:07
PROVIDERS: ADMIT Hospitalist; ATTEND Internal Medicine
PROC: 4A023N7 Measurement of Cardiac Sampling and Pressure, Left Heart, Percutaneous Approach (ICD-10-PCS; principal; 2021-01-09)
PROC: B2111ZZ Fluoroscopy of Multiple Coronary Arteries using Low Osmolar Contrast (ICD-10-PCS; 2021-01-09)
PROC: B2151ZZ Fluoroscopy of Left Heart using Low Osmolar Contrast (ICD-10-PCS; 2021-01-09)
DX: I21.4 Non-ST elevation (NSTEMI) myocardial infarction (principal); G93.41 Metabolic encephalopathy; N17.0 Acute kidney failure with tubular necrosis; G93.40 Encephalopathy, unspecified; F14.10 Cocaine abuse, uncomplicated; R09.02 Hypoxemia; R06.89 Other abnormalities of breathing; D72.829 Elevated white blood cell count, unspecified; K70.9 Alcoholic liver disease, unspecified; Z79.899 Other long term (current) drug therapy
CPT/HCPCS: 36415; 70450; 71045; 80048; 80053; 80061; 80076; 80307; 80320; 81001; 82140; 82550; 82553; 82805; 84443; 84484; 85007; 85014; 85018; 85025; 85520; 85610; 85730; 87040; 93005; 93306; 93458; 96361; 96365; 96375; G0378; A9270-GY; C1894; G0480; J0696; J1644; J2250; J2405; J3010; J7030; J7040; Q9967